=== PATIENT | male | born 1930 | race Caucasian/White ===

== ENCOUNTER 2016-09-21 00:10 | Inpatient (IN) | payer MEDICARE, BC ==
[2016-09-21] VITALS (33 sets, daily range): BP systolic 105–128; BP diastolic 48–83; PULSE 74–147; RESP 14–24; TEMP 97.7–98.8; O2SAT 85–99
--- NOTE | 2016-09-21 00:33 | PD ---
HPI Chief Complaint: Abnormal Results Time Seen by Provider: 00:18 Travel History International Travel<30 days: No Contact w/Intl Traveler<30days: No Traveled to known affect area: No History of Present Illness HPI 86yo M brought in by [facility] from [facility] for low hemoglobin of 6.5 today. Pt had routine blood work this afternoon and found to have low hemoglobin. Pt has history of osteomyelitis receiving antibiotics from left PICC line, HTN, afib on coumadin, and recent right hip replacement 6-7 weeks ago. 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 Denies any fever, chest pain, sob, n/v, abdominal pain, blood in stool, focal weakness or numbness. Denies any bleeding. PFSH Social History Tobacco Use: No Allergies-Medications (Allergen,Severity, Reaction): Coded Allergies: Heparin (Verified Allergy, Unknown, 09/21/16) Iodine (Verified Allergy, Unknown, 09/21/16) Reported Meds & Prescriptions Reported Meds & Active Scripts Active Reported Cefazolin/Dextrose 2 gm/100Ml (Cefazolin in D5w) 1 Inj Inj 2 Gm IV Q8HR Zinc Sulfate 220 Mg Cap 220 Mg PO DAILY Coumadin (Warfarin) 4 Mg Tab 4.5 Mg PO DAILY Lotrisone Topical (Betamethasone/Clotrimazole) 1-0.05% Cream 1 Applic TOPICAL BID Metoprolol Tartrate 50 Mg Tab 50 Mg PO DAILY Dulcolax Supp (Bisacodyl) 10 Mg Supp 10 Mg RECTAL DAILY PRN Milk of Magnesia Liq (Magnesium Hydroxide) 400 Mg/5 Ml Susp 30 Ml PO Q6H PRN Enema 7-19 gm/118Ml (Sodium Phosphates) 1 Martha Martha Valsartan 320 Mg Tab 320 Mg PO DAILY Citroma Liq (Magnesium Citrate) 300 Ml Liq 296 Ml PO DIRECTED PRN Vytorin (Ezetimibe-Simvastatin) 10-20 Mg Tab 1 Tab PO HS Review of Systems Except as stated in HPI: all other systems reviewed are Neg Physical Exam Narrative GEN: 86yo M not in distress. SKIN: Warm and dry. HEENT: Head: Normocephalic, atraumatic. ENT: Eyes: EOMI, PERRLA. CV: S1, S2. Lungs: CTA B/L, equal breath sounds. Abd: soft, NT/ND. BACK: No midline ttp. Ext: RLE: +Right proximal femur scar, clean, no erythema or discharge. NEURO: No focal neurologic deficits. Data Data Last Documented VS Vital Signs Date Time Temp Pulse Resp B/P Pulse Ox O2 Delivery O2 Flow Rate FiO2 09/21/16 02:00 77 18 105/64 96 Nasal Cannula 2 Orders Complete Blood Count With Diff (09/21/16 00:28) Basic Metabolic Panel (Bmp) (09/21/16 00:28) Prothrombin Time / Inr (Pt) (09/21/16 00:28) Act Partial Throm Time (Ptt) (09/21/16 00:28) Type And Screen (09/21/16 00:28) Electrocardiogram (09/21/16 ) Red Blood Cells (Rbc) (09/21/16 01:01) Blood Product Administration .UPON TRANSFUSION (09/21/16 01:01) Sodium Chlor 0.9% 250 Ml Inj (Ns 250 Ml (09/21/16 01:15) Ckmb (Isoenzyme) Profile (09/21/16 00:30) Troponin I (09/21/16 00:30) Admit Order (Ed Use Only) (09/21/16 01:59) Direct Jackson (09/21/16 00:30) Labs Laboratory Tests Test 09/21/16 09/21/16 00:30 01:01 White Blood Count 7.5 TH/MM3 Red Blood Count 2.10 MIL/MM3 Hemoglobin 6.3 GM/DL Hematocrit 19.1 % Mean Corpuscular Volume 90.8 FL Mean Corpuscular Hemoglobin 30.0 PG Mean Corpuscular Hemoglobin 33.0 % Concent Red Cell Distribution Width 17.9 % Platelet Count 176 TH/MM3 Mean Platelet Volume 6.9 FL Neutrophils (%) (Auto) 73.2 % Lymphocytes (%) (Auto) 16.4 % Monocytes (%) (Auto) 6.6 % Eosinophils (%) (Auto) 3.1 % Basophils (%) (Auto) 0.7 % Neutrophils # (Auto) 5.5 TH/MM3 Lymphocytes # (Auto) 1.2 TH/MM3 Monocytes # (Auto) 0.5 TH/MM3 Eosinophils # (Auto) 0.2 TH/MM3 Basophils # (Auto) 0.1 TH/MM3 CBC Comment DIFF FINAL Differential Comment Prothrombin Time 38.6 SEC Prothromb Time International 3.3 RATIO Ratio Activated Partial 43.9 SEC Thromboplast Time Sodium Level 139 MEQ/L Potassium Level 4.3 MEQ/L Chloride Level 103 MEQ/L Carbon Dioxide Level 29.6 MEQ/L Anion Gap 6 MEQ/L Blood Urea Nitrogen 31 MG/DL Creatinine 1.22 MG/DL Estimat Glomerular Filtration 56 ML/MIN Rate Random Glucose 113 MG/DL Calcium Level 8.1 MG/DL Total Creatine Kinase 34 U/L Troponin I 0.13 NG/ML Blood Type B NEGATIVE Antibody Screen POSITIVE Antibody Identification Non-Specific Agglutinin Direct Antiglobulin Test NEGATIVE (Jackson) Crossmatch Leukocyte-Reduced Red Blood Cells Blood Bank Comment MDM Medical Decision Making Medical Screen Exam Complete: Yes Emergency Medical Condition: Yes Interpretation(s) EKG: Afib 76bpm. TWI inversions in I, aVL, V4-V6. ST depression V5. Differential Diagnosis GI bleed vs. chronic anemia Narrative Course 86yo M sent here because of low hemoglobin of 6.5. Labs reviewed, no leukocytosis. H/H is low at 6.3/19.1, will transfuse 2 units of RBC. INR therapeutic at 3.3. Pt has no chest pain but EKG shows ischemic changes with ST depression and TWI inversion in lateral leads so troponin was ordered. Troponin is mildly elevated at 0.13, will trend. Discussed with Dr. Tim and accepted to her service. HemaPrompt Point of Care Internal Pos. & Neg. Controls: Passed Fecal Specimen Occult Blood: Negative Diagnosis Primary Impression: Anemia Qualified Code: D64.9 - Anemia, unspecified type Admitting Information Admitting Physician Requests: Admit Liz Florian DO Sep 21, 2016 00:33 Liz Florian DO Sep 21, 2016 00:33
[2016-09-21 00:53] LABS: AUTOMATED NEUTROPHIL # 5.5 TH/MM3 (1.8-7.7); BASOPHIL # 0.1 TH/MM3 (0-0.2); BASOPHIL % 0.7 % (0.0-2.0); EOSINOPHIL # 0.2 TH/MM3 (0-0.4); EOSINOPHIL % 3.1 % (0.0-4.0); LYMPH % 16.4 % (9.0-44.0); LYMPHOCYTE # 1.2 TH/MM3 (1.0-4.8); MEAN CELL VOLUME 90.8 FL (80.0-100.0); MONO % 6.6 % (0.0-8.0); NEUT % 73.2 % (16.0-70.0); PLATELET COUNT 176 TH/MM3 (150-450); RED CELL DISTRIBUTION WIDTH 17.9 % (11.6-17.2); WHITE BLOOD COUNT 7.5 TH/MM3 (4.0-11.0)
[2016-09-21 00:56] LABS: HEMATOCRIT 19.1 % (39.0-51.0); HEMO FLAGS DIFF FINAL
[2016-09-21 01:06] LABS: APTT (PATIENT) 43.9 SEC (24.3-30.1); INTERNATIONAL NORMALIZED RATIO 3.3 RATIO; PROTHROMBIN TIME - PATIENT 38.6 SEC (9.8-11.6)
[2016-09-21 01:12] LABS: BICARBONATE 29.6 MEQ/L (21.0-32.0); POTASSIUM 4.3 MEQ/L (3.5-5.1)
[2016-09-21] MEDS ORDERED: METO50TA PO (01:15)
[2016-09-21] MEDS ORDERED: DULC10SU3 RECTAL (01:15)
[2016-09-21] MEDS ORDERED: SODIUM CHLOR 0.9% 250 ML INJ 250 ML IV ONE (01:15)
[2016-09-21] MEDS ORDERED: ZINC220C3 PO (01:15)
[2016-09-21] MEDS ORDERED: LOTR15T TOPICAL (01:15)
[2016-09-21] MEDS ORDERED: CEFA1INJ IV (01:15)
[2016-09-21] MEDS ORDERED: CITRSOL4 PO (01:15)
[2016-09-21] MEDS ORDERED: VYTO10TA8 PO (01:15)
[2016-09-21] MEDS ORDERED: MILKSUS PO (01:15)
[2016-09-21] MEDS ORDERED: COUM4TAB PO (01:15)
[2016-09-21] MEDS ORDERED: ENEMENE3 (01:15)
[2016-09-21] MEDS ORDERED: VALS1TAB70 PO (01:15)
[2016-09-21] MEDS ORDERED: ACETAMINOPHEN 325 MG TAB PO PRN (02:15)
[2016-09-21] MEDS ORDERED: BISACODYL 10 MG SUPP RECTAL PRN (02:15)
[2016-09-21] MEDS ORDERED: SODIUM CHLORIDE 0.9% FLUSH 10 ML FLUSH IV FLUSH PRN (02:15)
[2016-09-21] MEDS ORDERED: ONDANSETRON HCL 4 MG/2 ML VIAL IVP PRN (02:15)
[2016-09-21] MEDS ORDERED: LACTULOSE SYRUP 20 GM/30 ML CUP PO PRN (02:15)
[2016-09-21] MEDS ORDERED: FUROSEMIDE 20 MG/2 ML VIAL IV PUSH ONE (02:15)
[2016-09-21] MEDS ORDERED: SENNOSIDES 8.6 MG TAB PO PRN (02:15)
[2016-09-21 04:24] LABS: BACTERIA, URINE RARE /hpf; BLOOD, URINE SMALL (NEG); COMMENT (UR) CULTURE INDICATED; CULTURE IF INDICATED CULTURE INDICATED; GLUCOSE,URINE NEG (NEG); HYALINE CAST, URINE 3 /lpf (RARE); KETONE, URINE TRACE mg/dL (NEG); MUCUS URINE FEW /lpf (OCC); NITRITE,URINE NEG (NEG); PH, URINE 5.5 (5.0-8.5); SQUAMOUS EPITHELIAL CELL URINE 2 /hpf (0-5); URINE COLOR YELLOW (YELLW/STRAW)
[2016-09-21] MEDS ORDERED: RESP: ALBUTEROL 2.5 MG/IPRATROPIUM 0.5 MG NEB (PRN) NEB (04:45)
[2016-09-21] MEDS ORDERED: RESP: IPRATROPIUM 0.5 MG/2.5 ML NEB NEB ONE (05:00)
--- NOTE | 2016-09-21 05:04 | HHI.HP ---
[facility] Primary [facility] Physician No Primary Care Physician Admission Diagnosis Symptomatic anemia Diagnoses: (1) Anemia Diagnosis: Principal (2) A-fib Diagnosis: Principal (3) Elevated troponin Diagnosis: Principal (4) Osteomyelitis Diagnosis: Principal (5) UTI (urinary tract infection) Diagnosis: Principal Travel History International Travel<30 Days: No Contact w/Intl Traveler <30 Da: No Traveled to Known Affected Are: No History of Present Illness This is an 86-year-old male with a PMH of HTN, Osteomyelitis on IV Abx and A- fib on Coumadin who was sent to the ER secondary to outpatient lab work showing Hgb 6.3. Currently Hgb 6.5. Pt denies active bleeding at this time. On arrival, BP 108/55, HR 76, O2 sat 93% on 2L NC, Afebrile. WBC normal. Hgb 6.3 , Hct 19.1, no previous labs for comparison. Chemistry unremarkable except for dehydration, BUN 31, GFR 56. Troponin 0.13. INR 3.3. UA positive for UTI. 2u pRBC ordered in ER for transfusion. Pt w/ no complaints of chest pain or SOB. Review of Systems Except as stated in HPI: all other systems reviewed are Neg ROS: 14 point review of systems otherwise negative. Past Family Social History Past Medical History PMH: HTN, Osteomyelitis on IV Abx and A-fib on Coumadin Past Surgical History PAST SURGICAL HISTORY: Right Hip Replacement Allergies: Coded Allergies: Heparin (Verified Allergy, Unknown, 09/21/16) Iodine (Verified Allergy, Unknown, 09/21/16) Family History PAST FAMILY HISTORY: Reviewed. No h/o DM or CAD Social History PAST SOCIAL HISTORY: Negative for alcohol, tobacco or drugs. Patient is resident at [facility] Physical Exam Vital Signs Vital Signs Date Time Temp Pulse Resp B/P Pulse Ox O2 Delivery O2 Flow Rate FiO2 09/21/16 03:00 93 18 127/69 97 Nasal Cannula 2 09/21/16 02:00 77 18 105/64 96 Nasal Cannula 2 09/21/16 01:00 76 18 108/55 93 Nasal Cannula 2 Physical Exam PE: GENERAL: Elderly white male in no acute distress. HEENT: PERRLA, EOMI. No scleral icterus or conjunctival pallor. No lid lag or facial droop. CARDIOVASCULAR: Irregularly irregular, in A. fib. No obvious murmurs to auscultation. No chest tenderness to palpation. RESPIRATORY: No obvious rhonchi or wheezing. Clear to auscultation. Breath sounds equal bilaterally. GASTROINTESTINAL: Abdomen soft, non-tender, nondistended. BS normal. MUSCULOSKELETAL: Extremities without clubbing, cyanosis, or edema. No obvious deformities. NEUROLOGICAL: Awake, alert and oriented x4. No focal neurologic deficits. Moving both upper and lower extremities spontaneously. Laboratory Laboratory Tests Test 09/21/16 09/21/16 09/21/16 09/21/16 00:30 01:01 02:07 03:50 White Blood Count 7.5 Red Blood Count 2.10 Hemoglobin 6.3 Hematocrit 19.1 Mean Corpuscular Volume 90.8 Mean Corpuscular Hemoglobin 30.0 Mean Corpuscular Hemoglobin 33.0 Concent Red Cell Distribution Width 17.9 Platelet Count 176 Mean Platelet Volume 6.9 Neutrophils (%) (Auto) 73.2 Lymphocytes (%) (Auto) 16.4 Monocytes (%) (Auto) 6.6 Eosinophils (%) (Auto) 3.1 Basophils (%) (Auto) 0.7 Neutrophils # (Auto) 5.5 Lymphocytes # (Auto) 1.2 Monocytes # (Auto) 0.5 Eosinophils # (Auto) 0.2 Basophils # (Auto) 0.1 CBC Comment DIFF FINAL Differential Comment Prothrombin Time 38.6 Prothromb Time International 3.3 Ratio Activated Partial 43.9 Thromboplast Time Sodium Level 139 Potassium Level 4.3 Chloride Level 103 Carbon Dioxide Level 29.6 Anion Gap 6 Blood Urea Nitrogen 31 Creatinine 1.22 Estimat Glomerular Filtration 56 Rate Random Glucose 113 Calcium Level 8.1 Total Creatine Kinase 34 Troponin I 0.13 Blood Type B NEGATIVE B NEGATIVE Antibody Screen POSITIVE Antibody Identification Non-Specific Agglutinin Direct Antiglobulin Test NEGATIVE (Jackson) Crossmatch Leukocyte-Reduced Red Blood Cells Blood Bank Comment Urine Color YELLOW Urine Turbidity HAZY Urine pH 5.5 Urine Specific [place] 1.022 Urine Protein 30 Urine Glucose (UA) NEG Urine Ketones TRACE Urine Occult Blood SMALL Urine Nitrite NEG Urine Bilirubin NEG Urine Urobilinogen LESS THAN 2.0 Urine Leukocyte Esterase LARGE Urine RBC 6 Urine WBC 52 Urine Squamous Epithelial 2 Cells Urine Bacteria RARE Urine Hyaline Casts 3 Urine Mucus FEW Urine Yeast with Hyphae OCC Microscopic Urinalysis Comment CULTURE INDICATED Date/Time Procedure Status Source Growth 09/21/16 03:50 Urine Culture Received Urine Clean Catch Pending Result Diagram: 09/21/162909/21/1629 Assessment and Plan Problem List: (1) Anemia ICD Code: D64.9 Status: Acute (2) Elevated troponin ICD Code: R74.8 Status: Acute (3) A-fib ICD Code: I48.91 Status: Acute (4) UTI (urinary tract infection) ICD Code: N39.0 Status: Acute (5) Osteomyelitis ICD Code: M86.9 Status: Acute Assessment and Plan A/P: 1. Anemia: Critical Anemia, Hgb 6.5, Hct 19.1, no previous labs for comparison. No signs of bleeding. 2u pRBC ordered in ER, pending transfusion, repeat Hgb/Hct. 2. Elevated Trop: Trop 0.13, EKG w/ mild ST depressions and T-wave inversions , no previous EKG for comparison. No c/o chest pain. Likely secondary to cardiac strain from significant anemia. Admit to [facility], trend cardiac enzymes. Hold anticoagulation in light of critical anemia. 3. UTI: U/a w/ UTI, IV Abx, IVF for hydration. 4. Osteomyelitis: currently receiving IV Cefazolin 2gm IV q8h via Left PICC- present at time of admission. 5. A-fib: Chronic. On Coumadin, will hold in light of anemia, INR 3.3. Repeat INR in am. 6. DVT Prophylaxis: Pharmacologic contraindication in light of above. 7. Social work for d/c planning as needed. 8. Case discussed w/ ER physician at length Physician Certification 2 Midnight Certification Type: Admission for Inpatient Services Order for Inpatient Services The services are ordered in accordance with Medicare regulations or non- Medicare payer requirements, as applicable. In the case of services not specified as inpatient-only, they are appropriately provided as inpatient services in accordance with the 2-midnight benchmark. Estimated LOS (days): 2 days is the estimated time the patient will need to remain in the hospital, assuming treatment plan goals are met and no additional complications. Post-Hospital Plan: Not yet determined Michelle Tim MD Sep 21, 2016 05:04
[2016-09-21] MEDS ORDERED: DILTIAZEM INJ 125 MG in SODIUM CHLORIDE 0.9% INJ 100 ML IV SCH (05:15)
--- NOTE | 2016-09-21 05:56 | RADRPT ---
EXAM DATE/TIME: 09/21/2016 05:06 [place] COMPARISON: No previous studies available for comparison. INDICATIONS : Shortness of breath. MEDICAL HISTORY : None. SURGICAL HISTORY : None. ENCOUNTER: Initial ACUITY: 1 day PAIN SCORE: 0/10 LOCATION: chest FINDINGS: Patchy air space opacities are seen of both lungs. No large effusion seen. No pneumothorax. There is a left arm PICC with tip at the atrial caval junction. Patient has had previous median sternotomy and valve replacement. CONCLUSION: Patchy bilateral pulmonary consolidation. Senthil Nava MD on September 21, 2016 at 5:53 Board Certified Radiologist. This report was verified electronically.
[2016-09-21] MEDS: ACETAMINOPHEN/HYDROcodone 325 MG/10 MG TAB PO PRN ×3 (06:01→18:39)
[2016-09-21] MEDS: ZINC SULFATE 220 MG CAP PO SCH (09:00)
[2016-09-21] MEDS: ceFAZolin 2 GM PREMIX 50 ML IV SCH ×3 (10:15→21:18)
[2016-09-21] MEDS: METOPROLOL TARTRATE 50 MG TAB PO SCH (10:16)
[2016-09-21] MEDS: VALSARTAN 160 MG TAB PO SCH (10:16)
[2016-09-21] MEDS: SODIUM CHLORIDE 0.9% FLUSH 10 ML FLUSH IV FLUSH SCH ×2 (10:16→21:07)
[2016-09-21] MEDS: DOCUSATE SODIUM 50 MG/SENNA 8.6 MG TAB PO SCH ×2 (10:17→21:07)
[2016-09-21] MEDS: BETAMETHASONE/CLOTRIMAZOLE CREAM 15 GM TOPICAL SCH ×2 (10:17→21:17)
--- NOTE | 2016-09-21 17:26 | EKG ---
Date Performed: 09/21/2016 Time Performed: 04:56:16 PTAGE: 86 years EKG: Atrial fibrillation with rapid ventricular response with PVC(s) or aberrant ventricular con duction Left bundle branch block Abnormal ECG PREVIOUS TRACING : 09/21/2016 00.56 Compared to the previous tracing a fib w RVR present DOCTOR: Izabela Foss Interpretating Date/Time 09/21/2016 17:25:51
--- NOTE | 2016-09-21 17:32 | EKG ---
Date Performed: 09/21/2016 Time Performed: 00:56:26 PTAGE: 86 years EKG: Sinus rhythm MODERATE INTRAVENTRICULAR CONDUCTION DELAY ST DEVIATION AND MODERATE T-WAVE ABNORMALITY ABNORMAL ECG NO PREVIOUS TRACING DOCTOR: Izabela Foss Interpretating Date/Time 09/21/2016 17:32:19
[2016-09-21 17:56] LABS: FERRITIN 268 NG/ML (26-388); TRANSFERRIN IRON PROFILE 174 MG/DL (200-360)
[2016-09-21] MEDS ORDERED: NON-FORMULARY DRUG (Ezetimibe-Simvastatin (Vytorin) 1 TAB) PO SCH (21:00)
[2016-09-21] MEDS: EZETIMIBE 10 MG TAB PO SCH (21:07)
[2016-09-21] MEDS: PRAVASTATIN SOD 40 MG TAB PO SCH (21:07)
[2016-09-21] MEDS: ACETAMINOPHEN/HYDROcodone 325 MG/5 MG TAB PO PRN (22:28)
[2016-09-21 23:39] LABS: HEMATOCRIT 24.5 % (39.0-51.0)
[2016-09-22] VITALS (28 sets, daily range): BP systolic 112–124; BP diastolic 67–79; PULSE 72–108; RESP 16–18; TEMP 98–98.6; O2SAT 91–95
[2016-09-22] MEDS: ACETAMINOPHEN/HYDROcodone 325 MG/10 MG TAB PO PRN (02:26)
[2016-09-22] MEDS: ceFAZolin 2 GM PREMIX 50 ML IV SCH ×3 (05:42→21:12)
[2016-09-22 06:48] LABS: AUTOMATED NEUTROPHIL # 5.7 TH/MM3 (1.8-7.7); BASOPHIL % 0.3 % (0.0-2.0); EOSINOPHIL # 0.2 TH/MM3 (0-0.4); EOSINOPHIL % 2.8 % (0.0-4.0); HEMATOCRIT 23.9 % (39.0-51.0); MEAN CELL VOLUME 90.8 FL (80.0-100.0); MEAN CORPUSCULAR HEMOGLOBIN 30.7 PG (27.0-34.0); MEAN CORPUSCULAR HGB CONC 33.8 % (32.0-36.0); MONO % 7.7 % (0.0-8.0); NEUT % 76.2 % (16.0-70.0); PLATELET COUNT 178 TH/MM3 (150-450); RED BLOOD COUNT 2.64 MIL/MM3 (4.50-5.90); RED CELL DISTRIBUTION WIDTH 16.9 % (11.6-17.2); WHITE BLOOD COUNT 7.5 TH/MM3 (4.0-11.0)
[2016-09-22 07:00] LABS: ALT (GPT) 8 U/L (12-78); ANION GAP 5 MEQ/L (5-15); AST (GOT) 36 U/L (15-37); BICARBONATE 32.6 MEQ/L (21.0-32.0); BLOOD UREA NITROGEN 28 MG/DL (7-18); CHLORIDE 102 MEQ/L (98-107); GLOMERULAR FILTRATION RATE 72 ML/MIN (>89); POTASSIUM 4.3 MEQ/L (3.5-5.1); SODIUM (NA) 140 MEQ/L (136-145)
[2016-09-22 07:02] LABS: ALKALINE PHOSPHATASE 180 U/L (45-117); TOTAL BILIRUBIN ADULT 1.2 MG/DL (0.2-1.0)
[2016-09-22 07:16] LABS: INTERNATIONAL NORMALIZED RATIO 2.5 RATIO; PROTHROMBIN TIME - PATIENT 28.8 SEC (9.8-11.6)
[2016-09-22 07:17] LABS: HEMO FLAGS AUTO DIFF
[2016-09-22] MEDS: VALSARTAN 160 MG TAB PO SCH (09:16)
[2016-09-22] MEDS: ZINC SULFATE 220 MG CAP PO SCH (09:16)
[2016-09-22] MEDS: SODIUM CHLORIDE 0.9% FLUSH 10 ML FLUSH IV FLUSH SCH ×2 (09:16→21:12)
[2016-09-22] MEDS: DOCUSATE SODIUM 50 MG/SENNA 8.6 MG TAB PO SCH ×2 (09:16→21:11)
[2016-09-22] MEDS: METOPROLOL TARTRATE 50 MG TAB PO SCH (09:17)
[2016-09-22] MEDS: BETAMETHASONE/CLOTRIMAZOLE CREAM 15 GM TOPICAL SCH ×2 (09:17→21:12)
--- NOTE | 2016-09-22 10:46 | HHI.PR ---
Subjective Remarks Patient reports is feeling better today. Shortness of breath has improved. No chest pain. He is tolerating his diet. Objective Vitals Vital Signs Date Time Temp Pulse Resp B/P Pulse Ox O2 Delivery O2 Flow Rate FiO2 09/22/16 09:26 91 Nasal Cannula 3.00 09/22/16 09:00 88 09/22/16 09:00 94 Nasal Cannula 4.00 09/22/16 08:00 89 09/22/16 08:00 91 Nasal Cannula 3.00 09/22/16 08:00 98.2 91 18 124/79 92 09/22/16 07:47 94 Nasal Cannula 3.00 09/22/16 07:00 74 09/22/16 06:33 79 09/22/16 05:21 88 09/22/16 04:04 83 09/22/16 03:07 98.5 100 18 114/67 92 09/22/16 03:07 92 Nasal Cannula 3.50 09/22/16 03:07 100 09/22/16 02:15 92 09/22/16 01:35 92 09/22/16 00:15 93 09/21/16 23:15 98.7 94 16 109/78 96 09/21/16 23:15 99 09/21/16 23:15 94 Nasal Cannula 3.50 09/21/16 22:22 93 09/21/16 21:00 101 09/21/16 20:18 113 09/21/16 20:18 98.7 81 18 125/81 98 09/21/16 20:15 98 Nasal Cannula 4.00 09/21/16 19:45 94 Nasal Cannula 4.00 09/21/16 17:00 76 09/21/16 16:30 90 Nasal Cannula 3.00 09/21/16 16:07 97.8 104 16 118/83 92 09/21/16 16:00 98 09/21/16 15:35 89 09/21/16 15:25 97.8 104 16 118/83 92 09/21/16 15:00 78 09/21/16 14:00 74 09/21/16 13:00 74 09/21/16 12:05 83 09/21/16 12:00 74 09/21/16 12:00 98.0 75 16 117/75 96 09/21/16 12:00 94 Nasal Cannula 3.00 09/21/16 11:54 98.0 75 16 116/66 96 09/21/16 11:50 98.0 75 16 117/75 96 09/21/16 11:32 16 09/21/16 11:00 76 I/O 09/21/16 09/21/16 09/21/16 09/22/16 09/22/16 09/22/16 07:00 15:00 23:00 07:00 15:00 23:00 Intake Total 50 ml 1230 ml 340 ml Output Total 100 ml Balance -50 ml 1230 ml 340 ml Intake Oral 50 ml 520 ml 240 ml IV Total 200 ml 100 ml Packed Cells 510 ml Output Urine Total 100 ml # Voids 5 2 # Bowel Movements 0 0 0 Result Diagram: 09/22/16 0500 09/22/16 0500 Imaging Last Impressions Chest X-Ray 09/21/16 0000 Signed Impressions: Service Date/Time: Wednesday, September 21, 2016 05:06 - CONCLUSION: Patchy bilateral pulmonary consolidation. Senthil Nava MD Objective Remarks GENERAL: Elderly and frail male in no apparent distress. CARDIOVASCULAR: Normal rate and regular rhythm without murmurs, gallops, or rubs. RESPIRATORY: Good respiratory efforts. Diminished breath sounds at the bases otherwise clear to auscultation. GASTROINTESTINAL: Abdomen soft, non-tender, non-distended. Normal active bowel sounds MUSCULOSKELETAL: Extremities without cyanosis, or edema. NEURO: Alert & Oriented x4 to person, place, time, situation. Moves all ext x4 PSYCH: Appropriate mood and affect. A/P Problem List: (1) Anemia ICD Code: D64.9 Status: Acute (2) Elevated troponin ICD Code: R74.8 Status: Acute (3) A-fib ICD Code: I48.91 Status: Acute (4) UTI (urinary tract infection) ICD Code: N39.0 Status: Acute (5) Osteomyelitis ICD Code: M86.9 Status: Acute Assessment and Plan 86-year-old male with 1. Anemia: Critical Anemia on admission, Hgb 6.5, Hct 19.1. Per the patient' s family, he has had multiple surgeries in the past few months related to osteomyelitis of his hip. Has had some issues with anemia. Patient is status post PRBC transfusion. H&H stable. Continue to monitor. No signs of active bleeding. 2. Elevated Trop: Remain flat, EKG w/ mild ST depressions and T-wave inversions , no previous EKG for comparison. No c/o chest pain. Likely secondary to cardiac strain from significant anemia. 3. UTI: U/a w/ UTI, IV Abx, IVF for hydration. 4. Osteomyelitis: currently receiving IV Cefazolin 2gm IV q8h via Left PICC- present at time of admission. 5. A-fib: Chronic. On Coumadin, will hold in light of anemia, follow INR in am. 6. DVT Prophylaxis: Pharmacologic contraindication in light of above. Diamante Pang MD Sep 22, 2016 10:46
[2016-09-22 10:54] LABS: SCAN/DIFF AUTO DIFF CONFIRMED
[2016-09-22] MEDS: PRAVASTATIN SOD 40 MG TAB PO SCH (21:00)
[2016-09-22] MEDS: EZETIMIBE 10 MG TAB PO SCH (21:12)
[2016-09-22] MEDS: ACETAMINOPHEN/HYDROcodone 325 MG/5 MG TAB PO PRN (21:18)
[2016-09-23] VITALS (32 sets, daily range): BP systolic 87–117; BP diastolic 49–79; PULSE 74–124; RESP 15–20; TEMP 98–98.6; O2SAT 95–99
[2016-09-23] MEDS: ceFAZolin 2 GM PREMIX 50 ML IV SCH ×3 (05:30→21:16)
[2016-09-23 05:54] LABS: HEMATOCRIT 23.8 % (39.0-51.0); MEAN CELL VOLUME 90.7 FL (80.0-100.0); MEAN CORPUSCULAR HEMOGLOBIN 30.6 PG (27.0-34.0); MEAN CORPUSCULAR HGB CONC 33.8 % (32.0-36.0); PLATELET COUNT 170 TH/MM3 (150-450); RED BLOOD COUNT 2.63 MIL/MM3 (4.50-5.90); RED CELL DISTRIBUTION WIDTH 17.6 % (11.6-17.2); REVIEW FLAG FINAL; WHITE BLOOD COUNT 7.9 TH/MM3 (4.0-11.0)
[2016-09-23] MEDS: ACETAMINOPHEN/HYDROcodone 325 MG/10 MG TAB PO PRN (06:12)
[2016-09-23 06:17] LABS: BICARBONATE 30.3 MEQ/L (21.0-32.0)
[2016-09-23] MEDS: VALSARTAN 160 MG TAB PO SCH ×2 (08:26→09:00)
[2016-09-23] MEDS: ZINC SULFATE 220 MG CAP PO SCH (08:26)
[2016-09-23] MEDS: DOCUSATE SODIUM 50 MG/SENNA 8.6 MG TAB PO SCH ×2 (08:26→21:16)
[2016-09-23] MEDS: SODIUM CHLORIDE 0.9% FLUSH 10 ML FLUSH IV FLUSH SCH ×2 (08:26→21:16)
[2016-09-23] MEDS: METOPROLOL TARTRATE 50 MG TAB PO SCH ×2 (08:26→14:44)
[2016-09-23] MEDS: BETAMETHASONE/CLOTRIMAZOLE CREAM 15 GM TOPICAL SCH ×2 (08:27→21:17)
--- NOTE | 2016-09-23 11:06 | HHI.PR ---
Subjective Remarks BP on the lower side this morning. He denies lightheadedness or shortness of breath. H&H remained stable. Objective Vitals Vital Signs Date Time Temp Pulse Resp B/P Pulse Ox O2 Delivery O2 Flow Rate FiO2 09/23/16 10:00 90 09/23/16 09:27 100/58 09/23/16 09:25 87/49 09/23/16 09:00 87 09/23/16 08:34 96 Nasal Cannula 3.00 09/23/16 08:00 98 09/23/16 08:00 98.0 98 18 99/57 96 09/23/16 07:23 94 Nasal Cannula 3.00 09/23/16 07:15 20 09/23/16 07:00 97 09/23/16 06:02 103 09/23/16 05:57 102 09/23/16 04:12 90 09/23/16 03:31 98.1 76 15 115/79 96 09/23/16 03:31 96 Nasal Cannula 3.00 09/23/16 03:00 81 09/23/16 02:00 74 09/23/16 01:00 76 09/23/16 00:00 89 09/22/16 23:07 94 Nasal Cannula 3.00 09/22/16 23:07 98.4 91 16 114/73 94 09/22/16 23:00 76 09/22/16 22:00 108 09/22/16 21:00 76 09/22/16 20:00 96 09/22/16 19:07 95 Nasal Cannula 3.00 09/22/16 19:07 98.6 75 16 112/73 95 09/22/16 19:00 81 09/22/16 18:00 81 09/22/16 17:00 78 09/22/16 16:00 79 09/22/16 15:47 98.0 81 18 112/76 94 09/22/16 15:47 94 Nasal Cannula 3.00 09/22/16 15:00 76 09/22/16 14:00 78 09/22/16 13:00 82 09/22/16 12:00 84 09/22/16 12:00 98.0 81 18 118/78 94 09/22/16 12:00 94 Nasal Cannula 4.00 I/O 6/10/17 6/01/2909/22/16 09/23/16 09/23/16 09/23/16 07:00 15:00 23:00 07:00 15:00 23:00 Intake Total 340 ml 575 ml 530 ml Output Total 2 ml Balance 340 ml 575 ml 528 ml Intake Oral 240 ml 525 ml 480 ml IV Total 100 ml 50 ml 50 ml Output Urine Total 2 ml # Voids 2 4 # Bowel Movements 0 0 0 Result Diagram: 09/23/16 0532 09/23/16531 Objective Remarks GENERAL: Elderly and frail male in no apparent distress. CARDIOVASCULAR: Normal rate and regular rhythm without murmurs, gallops, or rubs. RESPIRATORY: Good respiratory efforts. Diminished breath sounds at the bases otherwise clear to auscultation. GASTROINTESTINAL: Abdomen soft, non-tender, non-distended. Normal active bowel sounds MUSCULOSKELETAL: Extremities without cyanosis, or edema. NEURO: Alert & Oriented x4 to person, place, time, situation. Moves all ext x4 PSYCH: Appropriate mood and affect. A/P Problem List: (1) Anemia ICD Code: D64.9 Status: Acute (2) Elevated troponin ICD Code: R74.8 Status: Acute (3) A-fib ICD Code: I48.91 Status: Acute (4) UTI (urinary tract infection) ICD Code: N39.0 Status: Acute (5) Osteomyelitis ICD Code: M86.9 Status: Acute Assessment and Plan 86-year-old male with Anemia: Critical Anemia on admission, Hgb 6.5, Hct 19.1. Per the patient's family, he has had multiple surgeries in the past few months related to osteomyelitis of his hip. Has had some issues with anemia. Patient is status post PRBC transfusion. H&H stable. Continue to monitor. No signs of active bleeding. Rectal exam neg in the ed. No BM yet. - Consult hematology for recommendations. His Coumadin has been on hold. He has a fib. Atrial fibrillation: chronic. Rate controlled on Metoprolol. Patient had one episode of borderline low blood pressure this morning. Asymptomatic. Continue to monitor closely. May need to decrease metoprolol dose. Elevated Trop: Remain flat, EKG w/ mild ST depressions and T-wave inversions, no previous EKG for comparison. No c/o chest pain. Likely secondary to cardiac strain from significant anemia. UTI: U/a w/ UTI, on IV Abx. Follow cultures Osteomyelitis: currently receiving IV Cefazolin 2gm IV q8h via Left PICC- present at time of admission. DVT Prophylaxis: Pharmacologic contraindication in light of above. Problem Qualifiers (1) Anemia: Qualified Code: D64.9 - Anemia, unspecified type Diamante Pang MD Sep 23, 2016 11:06
[2016-09-23 13:08] LABS: INTERNATIONAL NORMALIZED RATIO 1.8 RATIO; PROTHROMBIN TIME - PATIENT 20.2 SEC (9.8-11.6)
[2016-09-23] MEDS: PRAVASTATIN SOD 40 MG TAB PO SCH (21:16)
[2016-09-23] MEDS: EZETIMIBE 10 MG TAB PO SCH (21:16)
[2016-09-24] VITALS (33 sets, daily range): BP systolic 104–133; BP diastolic 51–84; PULSE 73–102; RESP 16–18; TEMP 97.9–99.9; O2SAT 94–99
[2016-09-24] MEDS: ACETAMINOPHEN/HYDROcodone 325 MG/5 MG TAB PO PRN (00:57)
[2016-09-24 05:46] LABS: HEMATOCRIT 23.6 % (39.0-51.0); MEAN CELL VOLUME 92.7 FL (80.0-100.0); MEAN CORPUSCULAR HEMOGLOBIN 30.4 PG (27.0-34.0); MEAN CORPUSCULAR HGB CONC 32.8 % (32.0-36.0); PLATELET COUNT 149 TH/MM3 (150-450); RED BLOOD COUNT 2.55 MIL/MM3 (4.50-5.90); RED CELL DISTRIBUTION WIDTH 18.1 % (11.6-17.2); REVIEW FLAG FINAL; WHITE BLOOD COUNT 7.7 TH/MM3 (4.0-11.0)
[2016-09-24] MEDS: ceFAZolin 2 GM PREMIX 50 ML IV SCH ×3 (05:48→22:12)
[2016-09-24 05:51] LABS: INTERNATIONAL NORMALIZED RATIO 1.7 RATIO; PROTHROMBIN TIME - PATIENT 19.2 SEC (9.8-11.6)
[2016-09-24 06:15] LABS: BICARBONATE 30.9 MEQ/L (21.0-32.0); POTASSIUM 3.9 MEQ/L (3.5-5.1)
--- NOTE | 2016-09-24 06:16 | MB ---
cc: PAO LEE M.D. DATE OF CONSULTATION 09/23/2016 REASON FOR CONSULTATION Consult requested by Dr. Pang for evaluation of persistent anemia. HISTORY OF PRESENT ILLNESS Saul is a pleasant 86-year-old male. He has a history of osteomyelitis and he was treated with Rocephin for six weeks. After the Rocephin was stopped, the patient developed fever again and he was found to have recurrent osteomyelitis. He is now back on the antibiotics. He had a blood test at that the [facility] where the hemoglobin was found to be 6.5. The patient was sent to the emergency room. The patient is admitted to the hospital. He had received blood transfusion. His hemoglobin has improved. I have been asked to see the patient for further evaluation. REVIEW OF SYSTEMS The patient is feeling better after the blood transfusion. He denies any nausea or vomiting, diarrhea or constipation. He is complaining of weakness, tiredness and fatigue. He recently had a right hip replacement seven to eight weeks ago. The rest of the review of systems is negative. PAST MEDICAL HISTORY 1. Heart valve disease. 2. Arthritis. 3. Hypercholesterolemia. 4. Hypertension. 5. Atrial fibrillation. PAST SURGICAL HISTORY 1. Bovine heart valve replacement. 2. Right hip surgery. ALLERGIES HEPARIN. IODINE. MEDICATIONS Prior to his coming into the hospital - 1. Cephazolin. 2. Zinc. 3. Coumadin. 4. Lotrisone. 5. Metoprolol. 6. Dulcolax. 7. Milk of magnesia. 8. Enema. 9. Valsartan. 10. Citroma. 11. Vytorin. FAMILY HISTORY Noncontributory. SOCIAL HISTORY The patient does not smoke cigarettes, does not drink alcohol. PHYSICAL EXAMINATION GENERAL: This is a well-developed, well-nourished elderly white male in no apparent distress. VITAL SIGNS: Temperature 98.5, heart rate 77, blood pressure 117/73, O2 saturation 99% on 3 liters nasal cannula. HEENT: PERRLA, EOMI, anicteric. No oral lesions noted. NECK: Supple. There is no cervical, supraclavicular or axillary lymphadenopathy noted. LUNGS: Clear. No wheezing, rhonchi or rales. HEART: Irregularly irregular. ABDOMEN: Soft, nontender. No hepatosplenomegaly. EXTREMITIES: No pedal edema. NEUROLOGY: Awake, alert, oriented x 3. SKIN: No significant lesions noted. ASSESSMENT 1. Normocytic normochromic anemia. This is anemia of chronic inflammation such as osteomyelitis. 2. Osteomyelitis, status post 6 weeks of Rocephin therapy and then had recurrence and now is back on IV antibiotic with cefazolin. PLAN I have reviewed his records and I have discussed with the patient's son who is in the health care field and the daughter who is a nurse. We discussed that he has normocytic normochromic anemia. The B12, folate and iron studies do not show any deficiency. His stools were heme-negative on admission. He does not have any GI bleeding. We discussed that he is not losing blood but he is not making blood due to the chronic inflammation from osteomyelitis. We discussed that the chronic inflammation releases the cytokine such as TNF which has inhibitory effect on the bone marrow. His bone marrow is not making enough blood. My recommendation is to continue to provide blood transfusion support if his hemoglobin drops below 8. The blood transfusions certainly can be done either at the infusion center or in our clinic. Both the son and daughter like the idea of having blood transfusion at the infusion center rather than sending the patient to the emergency room and being admitted to the hospital. They will discuss with the admitting physician of [facility]. His hemoglobin has been stable for the last three days. In my opinion the patient could be safely discharged back to rehab and then continue to have outpatient transfusion if his hemoglobin drops below 8. The patient can be referred to our clinic for further followup if needed. Thank you for asking my opinion. MD ELIAN Garsia/RAJAT /1:19 AM /6:02 AM
[2016-09-24] MEDS: ZINC SULFATE 220 MG CAP PO SCH (09:36)
[2016-09-24] MEDS: DOCUSATE SODIUM 50 MG/SENNA 8.6 MG TAB PO SCH ×2 (09:36→22:12)
[2016-09-24] MEDS: ACETAMINOPHEN/HYDROcodone 325 MG/10 MG TAB PO PRN ×2 (09:36→22:13)
[2016-09-24] MEDS: METOPROLOL TARTRATE 50 MG TAB PO SCH (09:36)
[2016-09-24] MEDS: SODIUM CHLORIDE 0.9% FLUSH 10 ML FLUSH IV FLUSH SCH ×2 (09:37→22:13)
[2016-09-24] MEDS: BETAMETHASONE/CLOTRIMAZOLE CREAM 15 GM TOPICAL SCH ×2 (09:38→22:13)
--- NOTE | 2016-09-24 10:00 | PD.ONC.PN ---
Subjective Subjective Remarks Afebrile overnight. Resting comfortably in room. No complaints. Objective Data Date Time Temp Pulse Resp B/P Pulse Ox O2 Delivery O2 Flow Rate FiO2 09/24/16 07:45 75 09/24/16 07:45 97.9 75 18 118/73 98 09/24/16 07:45 95 Nasal Cannula 2.00 09/24/16 06:00 80 09/24/16 05:00 75 09/24/16 04:00 80 09/24/16 03:30 99 Nasal Cannula 3.00 09/24/16 03:30 98.4 73 16 116/69 99 09/24/16 03:00 75 09/24/16 02:00 84 09/24/16 01:00 95 09/24/16 00:00 76 09/23/16 23:40 Nasal Cannula 4.00 09/23/16 23:30 98.5 77 16 117/73 99 09/23/16 23:30 99 Nasal Cannula 3.00 09/23/16 23:00 76 09/23/16 22:00 76 09/23/16 21:00 76 09/23/16 20:00 97 Nasal Cannula 3.00 09/23/16 20:00 76 09/23/16 19:30 98.6 77 16 114/68 97 09/23/16 19:00 94 09/23/16 18:00 124 09/23/16 17:00 82 09/23/16 16:00 88 09/23/16 15:52 95 Nasal Cannula 3.00 09/23/16 15:51 98.0 79 20 112/62 95 09/23/16 15:00 77 09/23/16 14:00 91 09/23/16 13:00 99 09/23/16 12:00 94 09/23/16 11:19 98.5 98 18 101/60 96 09/23/16 11:18 94 Nasal Cannula 3.00 09/23/16 11:00 76 09/23/16 10:00 90 09/24/16 09/24/16 09/24/16 07:00 15:00 23:00 Intake Total 340 ml Output Total 150 ml Balance 190 ml Result Diagram: 09/24/1620 09/24/16 0520 Laboratory Results Laboratory Tests Test 09/23/16 09/24/16 12:30 05:20 Prothrombin Time 20.2 SEC 19.2 SEC Prothromb Time International 1.8 RATIO 1.7 RATIO Ratio White Blood Count 7.7 TH/MM3 Red Blood Count 2.55 MIL/MM3 Hemoglobin 7.7 GM/DL Hematocrit 23.6 % Mean Corpuscular Volume 92.7 FL Mean Corpuscular Hemoglobin 30.4 PG Mean Corpuscular Hemoglobin 32.8 % Concent Red Cell Distribution Width 18.1 % Platelet Count 149 TH/MM3 Mean Platelet Volume 7.0 FL Erythrocyte Sedimentation Rate 50 mm/hr Haptoglobin 47 MG/DL Sodium Level 136 MEQ/L Potassium Level 3.9 MEQ/L Chloride Level 99 MEQ/L Carbon Dioxide Level 30.9 MEQ/L Anion Gap 6 MEQ/L Blood Urea Nitrogen 21 MG/DL Creatinine 0.85 MG/DL Estimat Glomerular Filtration 85 ML/MIN Rate Random Glucose 137 MG/DL Calcium Level 8.2 MG/DL Phosphorus Level 2.8 MG/DL C-Reactive Protein 5.70 MG/DL Administered Medications Medications (Trade) Dose Ordered Sig/Markell Route PRN Reason Start Time Stop Time Status Last Admin Dose Admin Sodium Chloride (NS Flush) 2 ml BID IV FLUSH 09/21/16 09:00 09/24/16 09:37 Ondansetron HCl (Zofran Inj) 4 mg Q6H PRN IVP NAUSEA OR VOMITING 09/21/16 02:15 09/21/16 17:15 Acetaminophen/ Hydrocodone Bitart (Fentress 5-325 Mg) 1 tab Q4H PRN PO PAIN SCALE 3 TO 5 09/21/16 02:15 09/24/16 00:57 Acetaminophen/ Hydrocodone Bitart (Fentress 10-325 Mg) 1 tab Q4H PRN PO PAIN SCALE 6 TO 10 09/21/16 02:15 09/24/16 09:36 Senna/Docusate Sodium (Radha-Colace) 1 tab BID PO 09/21/16 09:00 09/24/16 09:36 Betamethasone/ Clotrimazole (Lotrisone Cream) 1 applic BID TOPICAL 09/21/16 09:00 09/24/16 09:38 Metoprolol Tartrate (Lopressor) 50 mg DAILY PO 09/21/16 09:00 09/24/16 09:36 Valsartan (Diovan) 320 mg DAILY PO 09/21/16 09:00 09/23/16 09:00 Zinc Sulfate (Zinc Sulfate) 220 mg DAILY PO 09/21/16 09:00 09/24/16 09:36 EZETIMIBE (Zetia) 10 mg HS PO 09/21/16 21:00 09/23/16 21:16 Pravastatin Sodium 40 mg 40 mg HS PO 09/21/16 21:00 09/23/16 21:16 Cefazolin Sodium/ Dextrose (Ancef 2 Gm Premix) 50 ml @ 100 mls/hr Q8H IV 09/21/16 06:00 09/24/16 05:48 Objective Remarks GENERAL: Elderly male, sitting up in NAD. SKIN: Warm and dry. HEAD: Normocephalic. EYES: no injection or drainage. NECK: Supple, trachea midline. CARDIOVASCULAR: +S1/S2 RESPIRATORY: diminished at bases, anterior smith with occasional rhonchi. on 4L O2 via [place] GASTROINTESTINAL: Abdomen soft, non-tender, nondistended. EXTREMITIES: No cyanosis. NEUROLOGICAL: awake and alert, normal speech. moving all extremities. Assessment/Plan Problem List: (1) Normocytic normochromic anemia Status: Acute Plan: 09/24: give 1 unit pRBC for hgb<8. fs faxed to [facility]. 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 --B12, folate and iron studies do not show any deficiency. --heme-negative stools --transfuse blood for hgb<8 --fs faxed to new patient referrals for follow up (2) Osteomyelitis Status: Acute Plan: --s/p 6 weeks of Rocephin therapy and then had recurrence-->now is back on IV antibiotic with cefazolin. Assessment 86y/o male with persistent anemia. history of osteomyelitis h/o Heart valve disease. Arthritis. Atrial fibrillation. Bovine heart valve replacement. Right hip surgery. Attending Statement Patient is Out of Bed Denies any new complaints Okay to restart Coumadin. No evidence of bleeding noted Monitor CBC The exam, history, and the medical decision-making described in the above note were completed with the assistance of the mid-level provider. I reviewed and agree with the findings presented. I attest that I had a [id number] encounter with the patient on the same day, and personally performed and documented my assessment and findings in the medical record. Samaria Bey Sep 24, 2016 10:00 Shaneka Epstein MD Sep 24, 2016 23:49
[2016-09-24] MEDS ORDERED: SODIUM CHLOR 0.9% 250 ML INJ 250 ML IV ONE (11:30)
[2016-09-24] MEDS ORDERED: ACETAMINOPHEN 325 MG TAB PO PRN (11:30)
[2016-09-24] MEDS ORDERED: diphenhydrAMINE HCL 25 MG CAP PO PRN (11:30)
[2016-09-24] MEDS: VALSARTAN 160 MG TAB PO SCH (12:49)
--- NOTE | 2016-09-24 13:23 | HHI.PR ---
Subjective Remarks no complains of chest pains or shortness of breath no reported melena or hematochezia- - guiac negative stools no abdominal pain Objective Vitals Vital Signs Date Time Temp Pulse Resp B/P Pulse Ox O2 Delivery O2 Flow Rate FiO2 09/24/16 09:56 96 Nasal Cannula 4.00 09/24/16 07:45 75 09/24/16 07:45 97.9 75 18 118/73 98 09/24/16 07:45 95 Nasal Cannula 2.00 09/24/16 06:00 80 09/24/16 05:00 75 09/24/16 04:00 80 09/24/16 03:30 99 Nasal Cannula 3.00 09/24/16 03:30 98.4 73 16 116/69 99 09/24/16 03:00 75 09/24/16 02:00 84 09/24/16 01:00 95 09/24/16 00:00 76 09/23/16 23:40 Nasal Cannula 4.00 09/23/16 23:30 98.5 77 16 117/73 99 09/23/16 23:30 99 Nasal Cannula 3.00 09/23/16 23:00 76 09/23/16 22:00 76 09/23/16 21:00 76 09/23/16 20:00 97 Nasal Cannula 3.00 09/23/16 20:00 76 09/23/16 19:30 98.6 77 16 114/68 97 09/23/16 19:00 94 09/23/16 18:00 124 09/23/16 17:00 82 09/23/16 16:00 88 09/23/16 15:52 95 Nasal Cannula 3.00 09/23/16 15:51 98.0 79 20 112/62 95 09/23/16 15:00 77 09/23/16 14:00 91 I/O 09/23/16 09/23/16 09/23/16 09/24/16 09/24/16 09/24/16 07:00 15:00 23:00 07:00 15:00 23:00 Intake Total 530 ml 675 ml 340 ml Output Total 2 ml 450 ml 150 ml Balance 528 ml 225 ml 190 ml Intake Oral 480 ml 625 ml 240 ml IV Total 50 ml 50 ml 100 ml Output Urine Total 2 ml 450 ml 150 ml # Voids 4 3 # Bowel Movements 0 0 0 Result Diagram: 09/24/16 0520 09/24/16 0520 Imaging Last Impressions Chest X-Ray 09/21/16 0000 Signed Impressions: Service Date/Time: Wednesday, September 21, 2016 05:06 - CONCLUSION: Patchy bilateral pulmonary consolidation. Senthil Nava MD Objective Remarks anicteric, NAD no JVD lungs no rales or wheezes regular rhtyhm abdomen soft, nontender extremities no edema neuro exam- unremarkable A/P Problem List: (1) Anemia ICD Code: D64.9 Status: Acute (2) Elevated troponin ICD Code: R74.8 Status: Acute (3) A-fib ICD Code: I48.91 Status: Acute (4) UTI (urinary tract infection) ICD Code: N39.0 Status: Acute (5) Osteomyelitis ICD Code: M86.9 Status: Acute Assessment and Plan 86-year-old male with Anemia: Critical Anemia on admission, Hgb 6.5, Hct 19.1. - Keep Hgb > 8.0. Transfuse 1 unit today - Per the patient's family, he has had multiple surgeries in the past few months related to osteomyelitis of his hip. - Has had some issues with anemia. Patient is status post PRBC transfusion. H& H stable. Continue to monitor. No signs of active bleeding. Rectal exam neg in the ed. - for transfusion 1 unit today - history of Atrial fibrillation:. - in SR History of AVR- bovine - Rate controlled on Metoprolol 50 mg daily. - no history of CVA - will hold Coumadin n light of severe anemia- will d/w with heamtology regarding resuming coumadin once H and H stable Elevated Trop: Remain flat, EKG w/ mild ST depressions and T-wave inversions, no previous EKG for comparison. No c/o chest pain. Likely secondary to cardiac strain from significant anemia. UTI: U/a w/ UTI, on IV Abx. Follow cultures Osteomyelitis: currently receiving IV Cefazolin 2gm IV q8h via Left PICC- present at time of admission. DVT Prophylaxis: Pharmacologic contraindication in light of above. Problem Qualifiers (1) Anemia: Qualified Code: D64.9 - Anemia, unspecified type Nancy Valdez MD Sep 24, 2016 13:23
[2016-09-24] MEDS: PRAVASTATIN SOD 40 MG TAB PO SCH (22:12)
[2016-09-24] MEDS: EZETIMIBE 10 MG TAB PO SCH (22:12)
[2016-09-25] VITALS (25 sets, daily range): BP systolic 112–127; BP diastolic 67–84; PULSE 76–108; RESP 14–20; TEMP 97.5–98.3; O2SAT 92–98
[2016-09-25 04:20] LABS: HEMATOCRIT 26.9 % (39.0-51.0); MEAN CELL VOLUME 92.4 FL (80.0-100.0); MEAN CORPUSCULAR HEMOGLOBIN 30.8 PG (27.0-34.0); MEAN CORPUSCULAR HGB CONC 33.3 % (32.0-36.0); PLATELET COUNT 159 TH/MM3 (150-450); RED BLOOD COUNT 2.91 MIL/MM3 (4.50-5.90); RED CELL DISTRIBUTION WIDTH 17.5 % (11.6-17.2); REVIEW FLAG FINAL; WHITE BLOOD COUNT 8.2 TH/MM3 (4.0-11.0)
[2016-09-25] MEDS: ACETAMINOPHEN/HYDROcodone 325 MG/10 MG TAB PO PRN (05:55)
[2016-09-25] MEDS: ceFAZolin 2 GM PREMIX 50 ML IV SCH ×3 (05:56→20:57)
[2016-09-25] MEDS: ZINC SULFATE 220 MG CAP PO SCH (09:53)
[2016-09-25] MEDS: MAGNESIUM HYDROXIDE SUSP 30 ML CUP PO PRN (09:53)
[2016-09-25] MEDS: METOPROLOL TARTRATE 50 MG TAB PO SCH (09:53)
[2016-09-25] MEDS: VALSARTAN 160 MG TAB PO SCH (09:53)
[2016-09-25] MEDS: BETAMETHASONE/CLOTRIMAZOLE CREAM 15 GM TOPICAL SCH ×2 (09:53→20:58)
[2016-09-25] MEDS: DOCUSATE SODIUM 50 MG/SENNA 8.6 MG TAB PO SCH ×2 (09:53→20:57)
[2016-09-25] MEDS: SODIUM CHLORIDE 0.9% FLUSH 10 ML FLUSH IV FLUSH SCH ×2 (09:53→20:57)
--- NOTE | 2016-09-25 12:04 | PD.ONC.PN ---
Subjective Subjective Remarks Afebrile overnight. Patient resting in room. No complaints. Denies pain. Objective Data Date Time Temp Pulse Resp B/P Pulse Ox O2 Delivery O2 Flow Rate FiO2 09/25/16 11:32 106 09/25/16 09:36 92 Nasal Cannula 3.00 09/25/16 08:08 98.3 89 14 122/67 92 09/25/16 08:00 93 Nasal Cannula 2.00 09/25/16 07:47 108 09/25/16 06:00 86 09/25/16 05:00 96 09/25/16 04:00 84 09/25/16 03:30 98 Nasal Cannula 2.00 09/25/16 03:30 98.3 88 16 112/71 98 09/25/16 03:00 88 09/25/16 02:00 86 09/25/16 01:00 84 09/25/16 00:00 95 09/24/16 23:30 98.6 88 16 106/66 96 09/24/16 23:30 96 Nasal Cannula 2.00 09/24/16 23:00 86 09/24/16 22:15 82 Room Air 09/24/16 22:15 96 Nasal Cannula 4.00 09/24/16 22:10 95 Nasal Cannula 2.00 09/24/16 22:00 90 09/24/16 21:35 99.9 90 18 104/58 94 09/24/16 21:00 94 09/24/16 20:00 78 09/24/16 19:30 99.0 86 16 112/51 96 09/24/16 19:30 96 Nasal Cannula 2.00 09/24/16 19:00 92 09/24/16 18:00 85 09/24/16 17:23 98.4 77 16 131/84 95 09/24/16 17:00 86 09/24/16 16:00 76 09/24/16 15:45 76 09/24/16 15:45 96 Nasal Cannula 2.00 09/24/16 15:45 98.9 76 18 133/57 98 09/24/16 15:45 76 09/24/16 15:45 95 Nasal Cannula 2.00 09/24/16 15:45 99.1 76 18 133/57 96 09/24/16 15:00 76 09/24/16 14:00 76 09/24/16 13:00 76 09/25/16 09/25/16 09/25/16 07:00 15:00 23:00 Intake Total 850 ml 360 ml Output Total 200 ml 200 ml Balance 650 ml 160 ml Result Diagram: 09/25/16 0355 09/24/16 0520 Laboratory Results Laboratory Tests Test 09/24/16 09/25/16 13:50 03:55 Blood Type B NEGATIVE Antibody Screen POSITIVE Crossmatch Leukocyte-Reduced Red Blood Cells Blood Bank Comment White Blood Count 8.2 TH/MM3 Red Blood Count 2.91 MIL/MM3 Hemoglobin 9.0 GM/DL Hematocrit 26.9 % Mean Corpuscular Volume 92.4 FL Mean Corpuscular Hemoglobin 30.8 PG Mean Corpuscular Hemoglobin 33.3 % Concent Red Cell Distribution Width 17.5 % Platelet Count 159 TH/MM3 Mean Platelet Volume 7.1 FL Administered Medications Medications (Trade) Dose Ordered Sig/Markell Route PRN Reason Start Time Stop Time Status Last Admin Dose Admin Sodium Chloride (NS Flush) 2 ml BID IV FLUSH 09/21/16 09:00 09/25/16 09:53 Ondansetron HCl (Zofran Inj) 4 mg Q6H PRN IVP NAUSEA OR VOMITING 09/21/16 02:15 09/21/16 17:15 Acetaminophen/ Hydrocodone Bitart (Bracey 5-325 Mg) 1 tab Q4H PRN PO PAIN SCALE 3 TO 5 09/21/16 02:15 09/24/16 00:57 Acetaminophen/ Hydrocodone Bitart (Bracey 10-325 Mg) 1 tab Q4H PRN PO PAIN SCALE 6 TO 10 09/21/16 02:15 09/25/16 05:55 Senna/Docusate Sodium (Radha-Colace) 1 tab BID PO 09/21/16 09:00 09/25/16 09:53 Magnesium Hydroxide (Milk Of Magnesia Liq) 30 ml Q12H PRN PO MILD - MODERATE CONSTIPATION 09/21/16 02:15 09/25/16 09:53 Lactulose (Lactulose Liq) 30 ml DAILY PRN PO SEVERE CONSITIPATION 09/21/16 02:15 09/25/16 05:56 Betamethasone/ Clotrimazole (Lotrisone Cream) 1 applic BID TOPICAL 09/21/16 09:00 09/25/16 09:53 Metoprolol Tartrate (Lopressor) 50 mg DAILY PO 09/21/16 09:00 09/25/16 09:53 Valsartan (Diovan) 320 mg DAILY PO 09/21/16 09:00 09/25/16 09:53 Zinc Sulfate (Zinc Sulfate) 220 mg DAILY PO 09/21/16 09:00 09/25/16 09:53 EZETIMIBE (Zetia) 10 mg HS PO 09/21/16 21:00 09/24/16 22:12 Pravastatin Sodium 40 mg 40 mg HS PO 09/21/16 21:00 09/24/16 22:12 Cefazolin Sodium/ Dextrose (Ancef 2 Gm Premix) 50 ml @ 100 mls/hr Q8H IV 09/21/16 06:00 09/25/16 05:56 Objective Remarks GENERAL: Elderly male, sitting up chair in NAD. SKIN: Warm and dry. HEAD: Normocephalic. EYES: no injection or drainage. NECK: Supple, trachea midline. CARDIOVASCULAR: +S1/S2 RESPIRATORY: scattered rhonchi. GASTROINTESTINAL: Abdomen soft, non-tender, nondistended. EXTREMITIES: No cyanosis. NEUROLOGICAL: aox3. normal speech. moving all extremities. Assessment/Plan Problem List: (1) Normocytic normochromic anemia Status: Acute Plan: 09/25: no transfusion needed today. okay to resume coumadin. clear for discharge. 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 --B12, folate and iron studies do not show any deficiency. --heme-negative stools --transfuse blood for hgb<8 --fs faxed to new patient referrals for follow up (2) Osteomyelitis Status: Acute Plan: --s/p 6 weeks of Rocephin therapy and then had recurrence-->now is back on IV antibiotic with cefazolin. Assessment 86y/o male with persistent anemia. history of osteomyelitis h/o Heart valve disease. Arthritis. Atrial fibrillation. Bovine heart valve replacement. Right hip surgery. Attending Statement Patient feels better Denies any bleeding Coumadin restarted Hemoglobin improved after the Transfusion yesterday clear for discharge from my standpoint Samaria Bey Sep 25, 2016 12:04 Shaneka Epstein MD Sep 26, 2016 01:25
--- NOTE | 2016-09-25 17:03 | HHI.PR ---
Subjective Remarks no complains of pain, nausea or vomiting, no melena or hematochezia voiding spontaenously - no dysuria Objective Vitals Vital Signs Date Time Temp Pulse Resp B/P Pulse Ox O2 Delivery O2 Flow Rate FiO2 09/25/16 15:00 92 Nasal Cannula 3.00 09/25/16 13:00 100 09/25/16 12:00 97.5 106 20 121/70 96 09/25/16 12:00 96 Nasal Cannula 2.00 09/25/16 12:00 84 09/25/16 11:32 106 09/25/16 09:36 92 Nasal Cannula 3.00 09/25/16 08:08 98.3 89 14 122/67 92 09/25/16 08:00 93 Nasal Cannula 2.00 09/25/16 07:47 108 09/25/16 06:00 86 09/25/16 05:00 96 09/25/16 04:00 84 09/25/16 03:30 98 Nasal Cannula 2.00 09/25/16 03:30 98.3 88 16 112/71 98 09/25/16 03:00 88 09/25/16 02:00 86 09/25/16 01:00 84 09/25/16 00:00 95 09/24/16 23:30 98.6 88 16 106/66 96 09/24/16 23:30 96 Nasal Cannula 2.00 09/24/16 23:00 86 09/24/16 22:15 82 Room Air 09/24/16 22:15 96 Nasal Cannula 4.00 09/24/16 22:10 95 Nasal Cannula 2.00 09/24/16 22:00 90 09/24/16 21:35 99.9 90 18 104/58 94 09/24/16 21:00 94 09/24/16 20:00 78 09/24/16 19:30 99.0 86 16 112/51 96 09/24/16 19:30 96 Nasal Cannula 2.00 09/24/16 19:00 92 09/24/16 18:00 85 09/24/16 17:23 98.4 77 16 131/84 95 I/O 09/24/16 09/24/16 09/24/16 09/25/16 09/25/16 09/25/16 07:00 15:00 23:00 07:00 15:00 23:00 Intake Total 340 ml 775 ml 850 ml 360 ml Output Total 150 ml 200 ml 200 ml Balance 190 ml 775 ml 650 ml 160 ml Intake Oral 240 ml 675 ml 300 ml 360 ml IV Total 100 ml 100 ml 100 ml Packed Cells 450 ml Output Urine Total 150 ml 200 ml 200 ml # Voids 3 4 2 # Bowel Movements 0 0 0 0 Result Diagram: 09/25/16 0355 09/24/16 0520 Imaging Last Impressions Chest X-Ray 09/21/16 0000 Signed Impressions: Service Date/Time: Wednesday, September 21, 2016 05:06 - CONCLUSION: Patchy bilateral pulmonary consolidation. Senthil Nava MD Objective Remarks anicteric, NAD no JVD lungs no rales or wheezes regular rhythm abdomen soft, nontender extremities no edema neuro exam- unremarkable A/P Problem List: (1) Anemia ICD Code: D64.9 Status: Acute (2) Elevated troponin ICD Code: R74.8 Status: Acute (3) A-fib ICD Code: I48.91 Status: Acute (4) UTI (urinary tract infection) ICD Code: N39.0 Status: Acute (5) Osteomyelitis ICD Code: M86.9 Status: Acute Assessment and Plan 86-year-old male with Anemia: Critical Anemia - S/P BT 09/24- - H and H improved - Keep Hgb > 8.0. - Per the patient's family, he has had multiple surgeries in the past few months related to osteomyelitis of his hip. - Has had some issues with anemia. Patient is status post PRBC transfusion. H& H stable. Continue to monitor. No signs of active bleeding. Rectal exam neg in the ed. - history of Atrial fibrillation:. - in SR History of AVR- bovine - Rate controlled on Metoprolol 50 mg daily. - no history of CVA - restart coumadin- cleared with Hematology - check INR now Elevated Trop: Remain flat, EKG w/ mild ST depressions and T-wave inversions, no previous EKG for comparison. No c/o chest pain. Likely secondary to cardiac strain from significant anemia. UTI: cultures- mixed- -contaminants- Osteomyelitis: currently receiving IV Cefazolin 2gm IV q8h via Left PICC- present at time of admission. DVT Prophylaxis: patient back on coumadin Problem Qualifiers (1) Anemia: Qualified Code: D64.9 - Anemia, unspecified type Nancy Valdez MD Sep 25, 2016 17:03
[2016-09-25 17:54] LABS: INTERNATIONAL NORMALIZED RATIO 1.4 RATIO; PROTHROMBIN TIME - PATIENT 15.4 SEC (9.8-11.6)
[2016-09-25] MEDS: PRAVASTATIN SOD 40 MG TAB PO SCH (20:56)
[2016-09-25] MEDS: EZETIMIBE 10 MG TAB PO SCH (20:56)
[2016-09-26] VITALS (20 sets, daily range): BP systolic 103–140; BP diastolic 64–85; PULSE 74–148; RESP 18–20; TEMP 97.7–99; O2SAT 91–97
[2016-09-26] MEDS: ceFAZolin 2 GM PREMIX 50 ML IV SCH ×3 (06:14→21:09)
[2016-09-26] MEDS ORDERED: DILTIAZEM HCL 25 MG/5 ML VIAL IVP ONE (08:30)
[2016-09-26] MEDS ORDERED: DILTIAZEM INJ 125 MG in SODIUM CHLORIDE 0.9% INJ 100 ML IV SCH (08:30)
--- NOTE | 2016-09-26 08:36 | HHI.PR ---
Subjective Remarks this am went into rapid a fib- appears anxious - telemetry 130s complains of pain leg with bending no complains of chest pain, complain feel short of breath- Sats. 88% Objective Vitals Vital Signs Date Time Temp Pulse Resp B/P Pulse Ox O2 Delivery O2 Flow Rate FiO2 09/26/16 07:00 106 09/26/16 06:00 92 09/26/16 05:00 78 09/26/16 04:00 92 Nasal Cannula 2.00 09/26/16 04:00 98.3 81 18 126/82 92 09/26/16 04:00 84 09/26/16 03:00 104 09/26/16 02:00 78 09/26/16 01:00 78 09/26/16 00:00 78 09/26/16 00:00 97 Nasal Cannula 2.00 09/26/16 00:00 98.2 78 18 126/70 97 09/25/16 23:00 78 09/25/16 22:00 78 09/25/16 21:47 Nasal Cannula 2.00 09/25/16 21:00 92 09/25/16 20:30 98.3 77 18 127/68 98 09/25/16 20:30 98 Nasal Cannula 2.00 09/25/16 20:00 76 09/25/16 19:00 77 09/25/16 18:00 77 09/25/16 17:00 76 09/25/16 16:00 76 09/25/16 15:00 92 Nasal Cannula 3.00 09/25/16 15:00 97.5 79 20 112/84 92 09/25/16 15:00 96 09/25/16 14:00 100 09/25/16 13:00 100 09/25/16 12:00 97.5 106 20 121/70 96 09/25/16 12:00 96 Nasal Cannula 2.00 09/25/16 12:00 84 09/25/16 11:32 106 09/25/16 09:36 92 Nasal Cannula 3.00 I/O 09/25/16 09/25/16 09/25/16 09/26/16 09/26/16 09/26/16 07:00 15:00 23:00 07:00 15:00 23:00 Intake Total 850 ml 360 ml 410 ml 480 ml Output Total 200 ml 200 ml 450 ml 635 ml Balance 650 ml 160 ml -40 ml -155 ml Intake Oral 300 ml 360 ml 360 ml 480 ml IV Total 100 ml Packed Cells 450 ml 50 ml Output Urine Total 200 ml 200 ml 450 ml 635 ml # Voids 2 5 # Bowel Movements 0 0 0 0 Result Diagram: 09/25/16 0355 09/24/16 0520 Imaging Last Impressions Chest X-Ray 09/21/16 0000 Signed Impressions: Service Date/Time: Wednesday, September 21, 2016 05:06 - CONCLUSION: Patchy bilateral pulmonary consolidation. Senthil Nava MD Objective Remarks anicteric, NAD no JVD lungs decrease breath sounds, no rales or wheezes Irregularly irregular rhythm- HR 130s abdomen soft, nontender extremities no edema , no calf swelling neuro exam- unremarkable A/P Problem List: (1) Anemia ICD Code: D64.9 Status: Acute (2) Elevated troponin ICD Code: R74.8 Status: Acute (3) A-fib ICD Code: I48.91 Status: Acute (4) UTI (urinary tract infection) ICD Code: N39.0 Status: Acute (5) Osteomyelitis ICD Code: M86.9 Status: Acute Assessment and Plan 86-year-old male with Anemia: Critical Anemia - S/P BT 09/24- - H and H improved - Stat CBC now with a fib- RVR - Keep Hgb > 8.0. . . - Has had some issues with anemia. Patient is status post PRBC transfusion. H& H stable. Continue to monitor. No signs of active bleeding. Rectal exam neg in the ed - cleared by Hematology to start anticoagulation- - A fib in RVR -history of Atrial fibrillation:. - paroxysmal- this am back into rapid a fib History of AVR- bovine CHF -on Metoprolol 50 mg daily.= give Cardizem IV push and start drip - cardiology consult- Known to Dr. Allison- - get stat labs now - no history of CVA - restart coumadin- cleared with Hematology- check stat CBC, INR now - continue Lasix. on ARB - stat EKG- ST depresision, T wave inversion 1. AVL, V4-V6 -02 2 LNC Elevated Trop: Remain flat, EKG w/ mild ST depressions and T-wave inversions, no previous EKG for comparison. No c/o chest pain. Likely secondary to cardiac strain from significant anemia. - stat EKG- ST depression and T wave inversion- similar to admission-rapid fib rhythm - stat troponin UTI: cultures- mixed- -contaminants- recheck UA Osteomyelitis: hip currently receiving IV Cefazolin 2gm IV q8h via Left PICC- present at time of admission. - PT ongoing- pivot DVT Prophylaxis: on coumadin - Lovenox if INR subtherapeutic Problem Qualifiers (1) Anemia: Qualified Code: D64.9 - Anemia, unspecified type Nancy Valdez MD Sep 26, 2016 08:36
[2016-09-26] MEDS: ZINC SULFATE 220 MG CAP PO SCH (08:45)
[2016-09-26] MEDS: ACETAMINOPHEN/HYDROcodone 325 MG/10 MG TAB PO PRN (08:45)
[2016-09-26] MEDS: METOPROLOL TARTRATE 50 MG TAB PO SCH (08:45)
[2016-09-26] MEDS: VALSARTAN 160 MG TAB PO SCH (08:45)
[2016-09-26] MEDS: DOCUSATE SODIUM 50 MG/SENNA 8.6 MG TAB PO SCH ×2 (08:45→20:29)
[2016-09-26] MEDS: SODIUM CHLORIDE 0.9% FLUSH 10 ML FLUSH IV FLUSH SCH ×2 (08:46→20:29)
[2016-09-26 08:53] LABS: AUTOMATED NEUTROPHIL # 7.4 TH/MM3 (1.8-7.7); BASOPHIL # 0.1 TH/MM3 (0-0.2); BASOPHIL % 0.8 % (0.0-2.0); EOSINOPHIL # 0.3 TH/MM3 (0-0.4); EOSINOPHIL % 3.4 % (0.0-4.0); HEMATOCRIT 28.9 % (39.0-51.0); HEMO FLAGS DIFF FINAL; LYMPH % 9.8 % (9.0-44.0); LYMPHOCYTE # 0.9 TH/MM3 (1.0-4.8); MEAN CELL VOLUME 88.2 FL (80.0-100.0); MEAN CORPUSCULAR HEMOGLOBIN 29.4 PG (27.0-34.0); MEAN CORPUSCULAR HGB CONC 33.4 % (32.0-36.0); MONO % 9.1 % (0.0-8.0); NEUT % 76.9 % (16.0-70.0); PLATELET COUNT 151 TH/MM3 (150-450); RED BLOOD COUNT 3.28 MIL/MM3 (4.50-5.90); RED CELL DISTRIBUTION WIDTH 18.2 % (11.6-17.2); WHITE BLOOD COUNT 9.6 TH/MM3 (4.0-11.0)
[2016-09-26] MEDS: BETAMETHASONE/CLOTRIMAZOLE CREAM 15 GM TOPICAL SCH ×2 (09:00→20:31)
[2016-09-26 09:05] LABS: INTERNATIONAL NORMALIZED RATIO 1.4 RATIO; PROTHROMBIN TIME - PATIENT 15.4 SEC (9.8-11.6)
[2016-09-26 09:20] LABS: ANION GAP 10 MEQ/L (5-15); AST (GOT) 32 U/L (15-37); BICARBONATE 28.5 MEQ/L (21.0-32.0); BLOOD UREA NITROGEN 17 MG/DL (7-18); CHLORIDE 95 MEQ/L (98-107); GLOMERULAR FILTRATION RATE 99 ML/MIN (>89); SODIUM (NA) 133 MEQ/L (136-145)
[2016-09-26 09:21] LABS: ALT (GPT) 7 U/L (12-78)
[2016-09-26 09:23] LABS: ALKALINE PHOSPHATASE 179 U/L (45-117); TOTAL BILIRUBIN ADULT 1.3 MG/DL (0.2-1.0)
--- NOTE | 2016-09-26 09:28 | RADRPT ---
EXAM DATE/TIME: 09/26/2016 08:43 [facility] COMPARISON: CHEST SINGLE AP, September 21, 2016, 5:06. INDICATIONS : Short of breath. Cough. MEDICAL HISTORY : None. SURGICAL HISTORY : None. ENCOUNTER: Subsequent ACUITY: 4 - 6 days PAIN SCORE: 0/10 LOCATION: Bilateral chest FINDINGS: There has been interval worsening of the diffuse infiltrates bilaterally consistent with worsening pu lmonary edema versus pneumonia. Clinical correlation is recommended. A left sided PICC line has its tip in the right atrium. Median sternotomy wires are noted status post cardiac surgery. Aortic and mitral valve replacements are noted. The heart is mildly enlarged. Degenerative changes and scolio sis of the thoracolumbar spine are noted. Degenerative changes are noted involving the left shoulder joint. CONCLUSION: 1. Interval worsening, patchy infiltrates bilaterally consistent with worsening pulmonary edema versu s pneumonia. Clinical correlation is recommended. 2. Cardiomegaly. Marty Givens MD on September 26, 2016 at 9:05 Board Certified Radiologist. This report was verified electronically.
[2016-09-26 13:35] LABS: BACTERIA, URINE FEW /hpf; BLOOD, URINE MOD (NEG); COMMENT (UR) CULTURE INDICATED; CULTURE IF INDICATED CULTURE INDICATED; GLUCOSE,URINE NEG (NEG); KETONE, URINE NEG (NEG); MUCUS URINE FEW /lpf (OCC); NITRITE,URINE POS (NEG); SQUAMOUS EPITHELIAL CELL URINE 9 /hpf (0-5); URINE COLOR DARK-YELLOW (YELLW/STRAW)
--- NOTE | 2016-09-26 14:20 | EKG ---
Date Performed: 09/26/2016 Time Performed: 08:50:24 PTAGE: 86 years EKG: Atrial fibrillation with rapid ventricular response. Leftward axis IV conduction defect Lef t ventricular hypertrophy Nonspecific ST-T wave changes Abnormal ECG NO PREVIOUS TRACING DOCTOR: Luis Dawkins Interpretating Date/Time 09/26/2016 14:19:37
--- NOTE | 2016-09-26 14:56 | PD.ONC.PN ---
Subjective Subjective Remarks Afebrile overnight. patient seen at 11AM. Daughter at bedside. No complaints. Patient resting comfortably. Objective Data Date Time Temp Pulse Resp B/P Pulse Ox O2 Delivery O2 Flow Rate FiO2 09/26/16 13:00 75 09/26/16 12:00 75 09/26/16 11:00 76 09/26/16 11:00 97.9 76 20 103/65 93 09/26/16 11:00 93 Nasal Cannula 2.00 09/26/16 10:01 18 09/26/16 10:00 74 09/26/16 09:00 114 09/26/16 08:00 98.2 148 20 140/77 91 09/26/16 08:00 148 09/26/16 08:00 91 Nasal Cannula 2.00 09/26/16 07:00 106 09/26/16 06:00 92 09/26/16 05:00 78 09/26/16 04:00 92 Nasal Cannula 2.00 09/26/16 04:00 98.3 81 18 126/82 92 09/26/16 04:00 84 09/26/16 03:00 104 09/26/16 02:00 78 09/26/16 01:00 78 09/26/16 00:00 78 09/26/16 00:00 97 Nasal Cannula 2.00 09/26/16 00:00 98.2 78 18 126/70 97 09/25/16 23:00 78 09/25/16 22:00 78 09/25/16 21:47 Nasal Cannula 2.00 09/25/16 21:00 92 09/25/16 20:30 98.3 77 18 127/68 98 09/25/16 20:30 98 Nasal Cannula 2.00 09/25/16 20:00 76 09/25/16 19:00 77 09/25/16 18:00 77 09/25/16 17:00 76 09/25/16 16:00 76 09/25/16 15:00 92 Nasal Cannula 3.00 09/25/16 15:00 97.5 79 20 112/84 92 09/25/16 15:00 96 09/26/16 09/26/16 09/26/16 07:00 15:00 23:00 Intake Total 480 ml Output Total 635 ml Balance -155 ml Result Diagram: 09/26/16 0830 09/26/16 0830 Laboratory Results Laboratory Tests Test 09/25/16 09/26/16 09/26/16 17:39 08:30 13:03 Prothrombin Time 15.4 SEC 15.4 SEC Prothromb Time International 1.4 RATIO 1.4 RATIO Ratio White Blood Count 9.6 TH/MM3 Red Blood Count 3.28 MIL/MM3 Hemoglobin 9.6 GM/DL Hematocrit 28.9 % Mean Corpuscular Volume 88.2 FL Mean Corpuscular Hemoglobin 29.4 PG Mean Corpuscular Hemoglobin 33.4 % Concent Red Cell Distribution Width 18.2 % Platelet Count 151 TH/MM3 Mean Platelet Volume 7.1 FL Neutrophils (%) (Auto) 76.9 % Lymphocytes (%) (Auto) 9.8 % Monocytes (%) (Auto) 9.1 % Eosinophils (%) (Auto) 3.4 % Basophils (%) (Auto) 0.8 % Neutrophils # (Auto) 7.4 TH/MM3 Lymphocytes # (Auto) 0.9 TH/MM3 Monocytes # (Auto) 0.9 TH/MM3 Eosinophils # (Auto) 0.3 TH/MM3 Basophils # (Auto) 0.1 TH/MM3 CBC Comment DIFF FINAL Differential Comment Sodium Level 133 MEQ/L Potassium Level 4.0 MEQ/L Chloride Level 95 MEQ/L Carbon Dioxide Level 28.5 MEQ/L Anion Gap 10 MEQ/L Blood Urea Nitrogen 17 MG/DL Creatinine 0.75 MG/DL Estimat Glomerular Filtration 99 ML/MIN Rate Random Glucose 110 MG/DL Calcium Level 8.3 MG/DL Total Bilirubin 1.3 MG/DL Aspartate Amino Transf 32 U/L (AST/SGOT) Alanine Aminotransferase 7 U/L (ALT/SGPT) Alkaline Phosphatase 179 U/L Troponin I 0.12 NG/ML B-Type Natriuretic Peptide 750 PG/ML Total Protein 7.3 GM/DL Albumin 2.5 GM/DL Urine Color DARK-YELLOW Urine Turbidity HAZY Urine pH 6.0 Urine Specific Rogers 1.025 Urine Protein 100 mg/dL Urine Glucose (UA) NEG mg/dL Urine Ketones NEG mg/dL Urine Occult Blood MOD Urine Nitrite POS Urine Bilirubin NEG Urine Urobilinogen LESS THAN 2.0 MG/DL Urine Leukocyte Esterase LARGE Urine RBC 7 /hpf Urine WBC 97 /hpf Urine Squamous Epithelial 9 /hpf Cells Urine Bacteria FEW /hpf Urine Mucus FEW /lpf Microscopic Urinalysis Comment CULTURE INDICATED Culture Results Microbiology Date/Time Procedure Status Source Growth 09/26/16 13:03 Urine Culture Received Urine Clean Catch Pending Imaging Studies Last 24 hours Impressions Chest X-Ray 09/26/16 0000 Signed Impressions: Service Date/Time: Monday, September 26, 2016 08:43 - CONCLUSION: 1. Interval worsening, patchy infiltrates bilaterally consistent with worsening pulmonary edema versus pneumonia. Clinical correlation is recommended. 2. Cardiomegaly. Marty Givens MD Administered Medications Medications (Trade) Dose Ordered Sig/Markell Route PRN Reason Start Time Stop Time Status Last Admin Dose Admin Sodium Chloride (NS Flush) 2 ml BID IV FLUSH 09/21/16 09:00 09/26/16 08:46 Ondansetron HCl (Zofran Inj) 4 mg Q6H PRN IVP NAUSEA OR VOMITING 09/21/16 02:15 09/21/16 17:15 Acetaminophen/ Hydrocodone Bitart ([place] 5-325 Mg) 1 tab Q4H PRN PO PAIN SCALE 3 TO 5 09/21/16 02:15 09/24/16 00:57 Acetaminophen/ Hydrocodone Bitart ([place] 10-325 Mg) 1 tab Q4H PRN PO PAIN SCALE 6 TO 10 09/21/16 02:15 09/26/16 08:45 Senna/Docusate Sodium (Radha-Colace) 1 tab BID PO 09/21/16 09:00 09/26/16 08:45 Magnesium Hydroxide (Milk Of Magnesia Liq) 30 ml Q12H PRN PO MILD - MODERATE CONSTIPATION 09/21/16 02:15 09/25/16 09:53 Lactulose (Lactulose Liq) 30 ml DAILY PRN PO SEVERE CONSITIPATION 09/21/16 02:15 09/25/16 05:56 Betamethasone/ Clotrimazole (Lotrisone Cream) 1 applic BID TOPICAL 09/21/16 09:00 09/26/16 09:00 Metoprolol Tartrate (Lopressor) 50 mg DAILY PO 09/21/16 09:00 09/26/16 08:45 Valsartan (Diovan) 320 mg DAILY PO 09/21/16 09:00 09/26/16 08:45 Zinc Sulfate (Zinc Sulfate) 220 mg DAILY PO 09/21/16 09:00 09/26/16 08:45 EZETIMIBE (Zetia) 10 mg HS PO 09/21/16 21:00 09/25/16 20:56 Pravastatin Sodium 40 mg 40 mg HS PO 09/21/16 21:00 09/25/16 20:56 Cefazolin Sodium/ Dextrose 50 ml @ 100 mls/hr Q8H IV 09/21/16 06:00 09/26/16 14:43 Diltiazem HCl/ Sodium Chloride (Cardizem Inj/NS Inj) 125 ml @ 0 mls/hr TITRATE IV 09/26/16 08:30 09/26/16 09:17 Objective Remarks GENERAL: Elderly male, sitting up in bed with daughter at bedside. SKIN: Warm and dry. HEAD: Normocephalic. EYES: no injection or drainage. NECK: Supple, trachea midline. CARDIOVASCULAR: +S1/S2 RESPIRATORY: occasional rhonchi. GASTROINTESTINAL: Abdomen soft, non-tender, nondistended. EXTREMITIES: No cyanosis. NEUROLOGICAL: awake and alert, normal speech. moving all extremities. Assessment/Plan Problem List: (1) Normocytic normochromic anemia Status: Acute Plan: 09/26: ok to resume coumadin. 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 --B12, folate and iron studies do not show any deficiency. --heme-negative stools --transfuse blood for hgb<8 --fs faxed to new patient referrals for follow up (2) Osteomyelitis Status: Acute Plan: --s/p 6 weeks of Rocephin therapy and then had recurrence-->now is back on IV antibiotic with cefazolin. Assessment 86y/o male with persistent anemia. history of osteomyelitis h/o Heart valve disease. Arthritis. Atrial fibrillation. Bovine heart valve replacement. Right hip surgery. Attending Statement Denies any new complaints Feels better Hemoglobin is improving .Today is 9.6 Continue Coumadin Can be discharge from my standpoint Follow up as an outpatient The exam, history, and the medical decision-making described in the above note were completed with the assistance of the mid-level provider. I reviewed and agree with the findings presented. I attest that I had a [id number] encounter with the patient on the same day, and personally performed and documented my assessment and findings in the medical record. Samaria Bey Sep 26, 2016 14:56 Shaneka Epstein MD Sep 27, 2016 06:28
[2016-09-26] MEDS ORDERED: WARFARIN SOD 5 MG TAB PO ONE (19:15)
[2016-09-26] MEDS: EZETIMIBE 10 MG TAB PO SCH (20:29)
[2016-09-26] MEDS: PRAVASTATIN SOD 40 MG TAB PO SCH (20:29)
[2016-09-26] MEDS: LEVOFLOXACIN 500 MG TAB PO SCH (20:37)
[2016-09-26] MEDS: FUROSEMIDE 20 MG/2 ML VIAL IV PUSH SCH (20:39)
[2016-09-27] VITALS (21 sets, daily range): BP systolic 109–146; BP diastolic 65–78; PULSE 54–120; RESP 16–20; TEMP 97.9–98.6; O2SAT 92–100
[2016-09-27] MEDS: ceFAZolin 2 GM PREMIX 50 ML IV SCH ×3 (06:03→21:14)
[2016-09-27 08:00] LABS: INTERNATIONAL NORMALIZED RATIO 1.5 RATIO; PROTHROMBIN TIME - PATIENT 16.5 SEC (9.8-11.6)
[2016-09-27] MEDS: SODIUM CHLORIDE 0.9% FLUSH 10 ML FLUSH IV FLUSH SCH ×2 (08:29→21:13)
[2016-09-27] MEDS: BETAMETHASONE/CLOTRIMAZOLE CREAM 15 GM TOPICAL SCH ×2 (08:29→21:14)
[2016-09-27] MEDS: ZINC SULFATE 220 MG CAP PO SCH (08:29)
[2016-09-27] MEDS: FUROSEMIDE 20 MG/2 ML VIAL IV PUSH SCH (08:29)
[2016-09-27] MEDS: DOCUSATE SODIUM 50 MG/SENNA 8.6 MG TAB PO SCH ×2 (08:29→21:13)
[2016-09-27] MEDS: METOPROLOL TARTRATE 50 MG TAB PO SCH ×2 (08:29→21:13)
[2016-09-27] MEDS: LEVOFLOXACIN 500 MG TAB PO SCH (08:29)
[2016-09-27] MEDS: VALSARTAN 160 MG TAB PO SCH (08:29)
--- NOTE | 2016-09-27 09:24 | MB ---
cc: UMANG ALLISON M.D., CAMILLE MD DATE OF CONSULTATION 09/26/2016 Thank you, Dr. Tim, for asking me to see this very pleasant 86-year-old male who presents with multiple medical problems, primarily very severe anemia with hemoglobin of 6, atrial fibrillation with a rapid ventricular response, elevated troponin, severe osteomyelitis and UTI. The patient has a history of osteomyelitis on IV antibiotics and she is now very ill with osteomyelitis and atrial fibrillation with rapid ventricular response for cardiology consultation. PAST MEDICAL HISTORY Positive for: 1. Double valve replacement which was carried out remotely by Dr. Carson. 2. He also has a history of chronic atrial fibrillation. 3. Hypertension 4. Osteomyelitis 5. IV antibiotics 6. Coumadin PAST SURGICAL HISTORY Is positive for the patient having had a right hip replacement. ALLERGIES Include HEPARIN AND IODINE. SOCIAL HISTORY Nonsmoker, nondrinker. No drugs. Lives at [facility] for rehabilitation. The patient is a poor historian at this time and a lot of his records have been obtained from the chart ALLERGIES Include HEPARIN AND IODINE. REVIEW OF SYSTEMS At this point he is stable, but feels weak and exhausted. PHYSICAL EXAM On examination, pulse was 76, blood pressure 130/64, respirations 20. EYES: Showed no xanthelasma. MOUTH: Showed no cyanosis or pallor. NECK: Showed no JVD. HEART: He had two heart sounds with a prosthetic click. Sternotomy scar. CHEST: Clear. ABDOMEN: Soft. EXTREMITIES: No evidence of edema. LABORATORY TESTS White count was 9.6, hemoglobin now 9.6, MCV was 88.2, platelet count 151,000, sed rate is 60, haptoglobin 47, alkaline phosphatase 179, troponin-I 0.12, BUN 17, creatinine 0.75. MEDICATIONS Medications include: 1. Coumadin 2. Levaquin 3. Furosemide 4. Diltiazem 5. Zetia 6. Pravastatin 7. Sodium chloride 8. Metoprolol 9. Diovan 10. Zinc 11. Albuterol EKG was read as showing atrial fibrillation with rapid ventricular response. ASSESSMENT AND PLAN At this point, he has atrial fibrillation with a rapid response. I feel his to Cardidavis. The patient had his p.o. Metoprolol increased if his blood pressure will tolerate. Thank you kindly for asking us to see this very pleasant gentleman. If this does not optimally control his heart rate, we may consider putting him on oral Cardizem. Umang Allison MD, CP,[facility]/DJL /9:52 PM /9:02 AM ROBERT
[2016-09-27 10:43] LABS: BICARBONATE 30.7 MEQ/L (21.0-32.0); POTASSIUM 3.2 MEQ/L (3.5-5.1)
--- NOTE | 2016-09-27 10:55 | HHI.PR ---
Subjective Remarks rate occasionally goes to 150s last night VT- asymptomatic 3 beats Objective Vitals Vital Signs Date Time Temp Pulse Resp B/P Pulse Ox O2 Delivery O2 Flow Rate FiO2 09/27/16 08:34 92 Nasal Cannula 4.00 09/27/16 08:10 97.9 75 16 146/78 94 09/27/16 04:00 79 09/27/16 04:00 98 Nasal Cannula 2.00 09/27/16 04:00 97.9 105 18 122/78 97 09/27/16 00:00 98.4 86 20 114/75 98 09/27/16 00:00 76 09/27/16 00:00 98 Nasal Cannula 2.00 09/26/16 20:00 96 Nasal Cannula 2.00 09/26/16 20:00 79 09/26/16 20:00 99.0 80 20 132/85 96 09/26/16 18:00 83 09/26/16 17:00 77 09/26/16 16:00 76 09/26/16 15:00 97.7 76 20 113/64 94 09/26/16 15:00 76 09/26/16 15:00 94 Nasal Cannula 2.00 09/26/16 14:00 76 09/26/16 13:00 75 09/26/16 12:00 75 09/26/16 11:00 76 09/26/16 11:00 97.9 76 20 103/65 93 09/26/16 11:00 93 Nasal Cannula 2.00 I/O 09/26/16 09/26/16 09/26/16 09/27/16 09/27/16 09/27/16 07:00 15:00 23:00 07:00 15:00 23:00 Intake Total 480 ml 290 ml 340 ml Output Total 635 ml 750 ml 1500 ml Balance -155 ml -460 ml -1160 ml Intake Oral 480 ml 240 ml 240 ml IV Total 50 ml 100 ml Output Urine Total 635 ml 750 ml 1500 ml # Voids 5 # Bowel Movements 0 0 0 Result Diagram: 09/26/16 0830 09/27/16 0900 Imaging Last Impressions Chest X-Ray 09/26/16 0000 Signed Impressions: Service Date/Time: Monday, September 26, 2016 08:43 - CONCLUSION: 1. Interval worsening, patchy infiltrates bilaterally consistent with worsening pulmonary edema versus pneumonia. Clinical correlation is recommended. 2. Cardiomegaly. Marty Givens MD Objective Remarks anicteric, NAD no JVD lungs decrease breath sounds, few basal rales or wheezes Irregularly irregular rhythm- 80s abdomen soft, nontender extremities no edema , no calf swelling neuro exam- unremarkable A/P Problem List: (1) Anemia ICD Code: D64.9 Status: Acute (2) Elevated troponin ICD Code: R74.8 Status: Acute (3) A-fib ICD Code: I48.91 Status: Acute (4) UTI (urinary tract infection) ICD Code: N39.0 Status: Acute (5) Osteomyelitis ICD Code: M86.9 Status: Acute Assessment and Plan 86-year-old male with Anemia: Critical Anemia - S/P BT 09/24- - H and H improved - Keep Hgb > 8.0. . . - Has had some issues with anemia. Patient is status post PRBC transfusion. H& H stable. Continue to monitor. No signs of active bleeding. Rectal exam neg in the ed - cleared by Hematology to start anticoagulation- ff INR - A fib in RVR -history of Atrial fibrillation:. - paroxysmal-last evening 130s History of AVR- bovine CHF - check echo - continue Lasix change to po -on Metoprolol 50 mg daily.- increase to bid - off cardizem drip . On Valsartan 320 mg daily- ff BP- with bid Metorpolol for rate control- adjust Valsartan dose if need - cardiology consult- Known to Dr. Allison- - ff - no history of CVA - restart coumadin- cleared with Hematology - stat EKG- ST depresision, T wave inversion 1. AVL, V4-V6 -02 2 LNC Elevated Trop: Remain flat, EKG w/ mild ST depressions and T-wave inversions, no previous EKG for comparison. No c/o chest pain. Likely secondary to cardiac strain from significant anemia. - stat EKG- ST depression and T wave inversion- similar to admission-rapid fib rhythm - stat troponin UTI: cultures-gram negative rods- started Levaquin 09/26 Osteomyelitis: hip currently receiving IV Cefazolin 2gm IV q8h via Left PICC- present at time of admission. - PT ongoing- pivot DVT Prophylaxis: on coumadin - Lovenox if INR subtherapeutic Problem Qualifiers (1) Anemia: Qualified Code: D64.9 - Anemia, unspecified type Nancy Valdez MD Sep 27, 2016 10:55
[2016-09-27 10:56] LABS: CALCIUM-PROTEIN CORRECTED 7.6 MG/DL (8.5-10.1)
[2016-09-27] MEDS ORDERED: POTASSIUM CHLORIDE 20 MEQ CONTROLLED RELEASE TAB PO ONE (11:00)
[2016-09-27] MEDS ORDERED: WARFARIN SOD 7.5 MG TAB PO ONE (16:00)
--- NOTE | 2016-09-27 17:18 | ECHRPT ---
Indication: Persistent atrial fibrillation CONCLUSIONS Normal left ventricular size. The left ventricular systolic function is severely reduced with an estimated ejection fraction in th e range of 20-25%. Trace mitral valve regurgitation. Normally functioning mitral valve bioprosthesis. MVA 2.1No aortic valve regurgitation. The aortic valve prosthesis is normal to two-dimensional, color flow and Doppler interrogation. Max gradient 15 mean 9 TREVON 1.0 There is mild tricuspid valve regurgitation. There is estimated moderate pulmonary hypertension present (range 50-60 mmHg). IVC 1.7There is global left ventricular dysfunction. There is global left ventricular dysfunction. BP: 140 / 77 HR: 148 Rhythm: Sinus MEASUREMENTS (Male / Female) Normal Values Technical Quality:Good 2D ECHO LV Diastolic Diameter PLAX 4.6 cm 4.2 - 5.9 / 3.9 - 5.3 cm LV Systolic Diameter PLAX 4.2 cm IVS Diastolic Thickness 1.7 cm 0.6 - 1.0 / 0.6 - 0.9 cm LVPW Diastolic Thickness 0.9 cm 0.6 - 1.0 / 0.6 - 0.9 cm LV Relative Wall Thickness 0.6 RV Internal Dim ED PLAX 3.2 cm LVOT Diameter 2.8 cm M-MODE Aortic Root Diameter MM 3.6 cm LA Systolic Diameter MM 4.0 cm LA Ao Ratio MM 1.1 DOPPLER AV Peak Velocity 195.0 cm/s AV Peak Gradient 15.2 mmHg AV Mean Gradient 8.5 mmHg AV Velocity Time Integral 34.0 cm LVOT Peak Velocity 52.6 cm/s LVOT Peak Gradient 1.1 mmHg LVOT Velocity Time Integral 9.3 cm AV Area Cont Eq vti 1.7 cm AV Area Cont Eq pk 1.7 cm MV Area PHT 2.1 cm TR Peak Velocity 339.0 cm/s TR Peak Gradient 46.0 mmHg FINDINGS LEFT VENTRICLE There is global left ventricular dysfunction. Normal left ventricular size. The left ventricular systolic function is severely reduced with an estimated ejection fraction in th e range of 20-25%. RIGHT VENTRICLE Normal right ventricular size and systolic function. LEFT ATRIUM The left atrial size is normal. RIGHT ATRIUM The right atrial size is normal. ATRIAL SEPTUM Normal atrial septal thickness without atrial level shunting by limited color doppler interrogation. AORTA The aortic root and proximal ascending aorta are normal in size on limited imaging. MITRAL VALVE Trace mitral valve regurgitation. Normally functioning mitral valve bioprosthesis. MVA 2.1 AORTIC VALVE No aortic valve regurgitation. The aortic valve prosthesis is normal to two-dimensional, color flow and Doppler interrogation. Max gradient 15 mean 9 TREVON 1.0 TRICUSPID VALVE Structurally normal tricuspid valve. There is mild tricuspid valve regurgitation. There is estimated moderate pulmonary hypertension present (range 50-60 mmHg). PULMONARY VALVE No pulmonary valve regurgitation or stenosis. VESSELS IVC 1.7 PERICARDIUM No pericardial effusion. Marcell Canchola MD (Electronically Signed) Final Date:27 September 2016 17:17
[2016-09-27] MEDS: ACETAMINOPHEN/HYDROcodone 325 MG/10 MG TAB PO PRN (18:50)
[2016-09-27] MEDS: EZETIMIBE 10 MG TAB PO SCH (21:13)
[2016-09-27] MEDS: PRAVASTATIN SOD 40 MG TAB PO SCH (21:13)
[2016-09-28] VITALS (25 sets, daily range): BP systolic 89–127; BP diastolic 55–78; PULSE 64–118; RESP 18–20; TEMP 97.9–98.4; O2SAT 97–100
[2016-09-28] MEDS: ACETAMINOPHEN/HYDROcodone 325 MG/10 MG TAB PO PRN (04:37)
[2016-09-28] MEDS: ceFAZolin 2 GM PREMIX 50 ML IV SCH ×3 (04:37→21:21)
[2016-09-28] MEDS: ZINC SULFATE 220 MG CAP PO SCH ×2 (09:00→11:20)
[2016-09-28] MEDS: VALSARTAN 160 MG TAB PO SCH (09:00)
[2016-09-28] MEDS: METOPROLOL TARTRATE 50 MG TAB PO SCH ×3 (09:00→21:00)
[2016-09-28] MEDS: FUROSEMIDE 20 MG/2 ML VIAL IV PUSH SCH (09:00)
[2016-09-28] MEDS: LEVOFLOXACIN 500 MG TAB PO SCH (09:14)
[2016-09-28] MEDS: DOCUSATE SODIUM 50 MG/SENNA 8.6 MG TAB PO SCH ×2 (09:14→21:20)
[2016-09-28] MEDS: SODIUM CHLORIDE 0.9% FLUSH 10 ML FLUSH IV FLUSH SCH ×2 (09:15→21:21)
[2016-09-28] MEDS: BETAMETHASONE/CLOTRIMAZOLE CREAM 15 GM TOPICAL SCH ×2 (09:20→21:21)
[2016-09-28] MEDS: POTASSIUM CHLOR 10 MEQ PREMIX 100 ML IV SCH ×3 (11:15→12:16)
[2016-09-28 11:52] LABS: HEMATOCRIT 26.9 % (39.0-51.0); MEAN CELL VOLUME 87.8 FL (80.0-100.0); MEAN CORPUSCULAR HEMOGLOBIN 29.7 PG (27.0-34.0); MEAN CORPUSCULAR HGB CONC 33.9 % (32.0-36.0); PLATELET COUNT 139 TH/MM3 (150-450); RED BLOOD COUNT 3.06 MIL/MM3 (4.50-5.90); RED CELL DISTRIBUTION WIDTH 17.8 % (11.6-17.2); REVIEW FLAG FINAL; WHITE BLOOD COUNT 7.5 TH/MM3 (4.0-11.0)
[2016-09-28 11:59] LABS: INTERNATIONAL NORMALIZED RATIO 1.7 RATIO; PROTHROMBIN TIME - PATIENT 19.7 SEC (9.8-11.6)
[2016-09-28 12:14] LABS: BICARBONATE 32.3 MEQ/L (21.0-32.0); POTASSIUM 3.7 MEQ/L (3.5-5.1)
[2016-09-28] MEDS ORDERED: WARFARIN SOD 5 MG TAB PO ONE (17:15)
--- NOTE | 2016-09-28 17:18 | HHI.PR ---
Subjective Remarks hungry , ate and drank ensure well no pain complains telemetry- a fib rhythm Objective Vitals Vital Signs Date Time Temp Pulse Resp B/P Pulse Ox O2 Delivery O2 Flow Rate FiO2 09/28/16 15:00 Nasal Cannula 2.00 09/28/16 11:00 Nasal Cannula 2.00 09/28/16 09:00 98.3 99 18 89/55 98 09/28/16 09:00 Nasal Cannula 2.00 09/28/16 06:00 64 09/28/16 05:37 20 09/28/16 05:00 96 09/28/16 04:00 108 09/28/16 04:00 Nasal Cannula 2.00 09/28/16 04:00 98.2 79 18 127/78 100 09/28/16 03:00 100 09/28/16 02:00 80 09/28/16 01:00 78 09/28/16 00:00 98.4 84 18 109/64 99 09/28/16 00:00 75 09/28/16 00:00 Nasal Cannula 3.00 09/27/16 23:00 76 09/27/16 22:00 82 09/27/16 21:00 82 09/27/16 20:00 98.5 85 20 109/65 100 09/27/16 20:00 Nasal Cannula 3.00 09/27/16 20:00 80 09/27/16 19:00 78 I/O 09/27/16 09/27/16 09/27/16 09/28/16 09/28/16 09/28/16 07:00 15:00 23:00 07:00 15:00 23:00 Intake Total 340 ml 150 ml 300 ml Output Total 1500 ml Balance -1160 ml 150 ml 300 ml Intake Oral 240 ml 200 ml IV Total 100 ml 150 ml 100 ml Output Urine Total 1500 ml # Voids 4 # Bowel Movements 0 0 Result Diagram: 09/28/16 1131 09/28/16 1131 Imaging Last Impressions Chest X-Ray 09/26/16 0000 Signed Impressions: Service Date/Time: Monday, September 26, 2016 08:43 - CONCLUSION: 1. Interval worsening, patchy infiltrates bilaterally consistent with worsening pulmonary edema versus pneumonia. Clinical correlation is recommended. 2. Cardiomegaly. Marty Givens MD Objective Remarks anicteric, NAD no JVD lungs decrease breath sounds, decrease breath sounds, no rales or wheezes Irregularly irregular rhythm- 80s abdomen soft, nontender extremities no edema , dressing intact neuro exam- unremarkable A/P Problem List: (1) Anemia ICD Code: D64.9 Status: Acute (2) Elevated troponin ICD Code: R74.8 Status: Acute (3) A-fib ICD Code: I48.91 Status: Acute (4) UTI (urinary tract infection) ICD Code: N39.0 Status: Acute (5) Osteomyelitis ICD Code: M86.9 Status: Acute Assessment and Plan 86-year-old male with Anemia: Critical Anemia - S/P BT 09/24- - H and H improved - Keep Hgb > 8.0. . . - Has had some issues with anemia. Patient is status post PRBC transfusion. H& H stable. Continue to monitor. No signs of active bleeding. Rectal exam neg in the ed - cleared by Hematology - started on coumadin anticoagulation- A fib paroxysmal- in a fibrhythm rate 90s- low 100s History of AVR- bovine. CHF i remission - restarted coumadin 09/27- dose for 5 mg today - continue on ARB -02 2 LNC UTI: -with Pseudomonas -started on po levaquin 500 mg po daily 09/26- ff final c and S Osteomyelitis: hip currently receiving IV Cefazolin 2gm IV q8h via Left PICC- present at time of admission. - PT ongoing- pivot DVT Prophylaxis: on coumadin - Lovenox if INR subtherapeutic Problem Qualifiers (1) Anemia: Qualified Code: D64.9 - Anemia, unspecified type Nancy Valdez MD Sep 28, 2016 17:18
--- NOTE | 2016-09-28 18:24 | PD.CARD.PN ---
Subjective Subjective Remarks NO CP has UTI hr still up may increase metoprolol or add oral cardizem Objective Medications Administered Medications Medications (Trade) Dose Ordered Sig/Markell Route PRN Reason Start Time Stop Time Status Last Admin Dose Admin Sodium Chloride (NS Flush) 2 ml BID IV FLUSH 09/21/16 09:00 09/28/16 09:15 Ondansetron HCl (Zofran Inj) 4 mg Q6H PRN IVP NAUSEA OR VOMITING 09/21/16 02:15 09/21/16 17:15 Acetaminophen/ Hydrocodone Bitart ([place] 5-325 Mg) 1 tab Q4H PRN PO PAIN SCALE 3 TO 5 09/21/16 02:15 09/24/16 00:57 Acetaminophen/ Hydrocodone Bitart ([place] 10-325 Mg) 1 tab Q4H PRN PO PAIN SCALE 6 TO 10 09/21/16 02:15 09/28/16 04:37 Senna/Docusate Sodium (Radha-Colace) 1 tab BID PO 09/21/16 09:00 09/28/16 09:14 Magnesium Hydroxide (Milk Of Magnesia Liq) 30 ml Q12H PRN PO MILD - MODERATE CONSTIPATION 09/21/16 02:15 09/25/16 09:53 Lactulose (Lactulose Liq) 30 ml DAILY PRN PO SEVERE CONSITIPATION 09/21/16 02:15 09/25/16 05:56 Betamethasone/ Clotrimazole (Lotrisone Cream) 1 applic BID TOPICAL 09/21/16 09:00 09/28/16 09:20 EZETIMIBE (Zetia) 10 mg HS PO 09/21/16 21:00 09/27/16 21:13 Pravastatin Sodium 40 mg 40 mg HS PO 09/21/16 21:00 09/27/16 21:13 Cefazolin Sodium/ Dextrose 50 ml @ 100 mls/hr Q8H IV 09/21/16 06:00 09/28/16 15:16 Diltiazem HCl/ Sodium Chloride (Cardizem Inj/NS Inj) 125 ml @ 0 mls/hr TITRATE IV 09/26/16 08:30 09/26/16 09:17 Levofloxacin (Levaquin) 500 mg DAILY PO 09/26/16 19:00 09/28/16 09:14 Metoprolol Tartrate (Lopressor) 50 mg BID PO 09/27/16 21:00 09/28/16 15:29 Zinc Sulfate (Zinc Sulfate) 220 mg DAILY@1100 PO 09/28/16 11:00 09/28/16 11:20 Vital Signs / I&O Vital Signs Date Time Temp Pulse Resp B/P Pulse Ox O2 Delivery O2 Flow Rate FiO2 09/28/16 18:00 102 09/28/16 17:00 96 09/28/16 16:00 117 09/28/16 15:29 98.0 115 18 115/74 100 09/28/16 15:00 Nasal Cannula 2.00 09/28/16 15:00 104 09/28/16 14:00 110 09/28/16 13:00 106 09/28/16 12:00 97.9 116 18 109/73 100 09/28/16 12:00 106 09/28/16 11:00 98 09/28/16 11:00 Nasal Cannula 2.00 09/28/16 10:00 102 09/28/16 09:00 98.3 99 18 89/55 98 09/28/16 09:00 102 09/28/16 09:00 Nasal Cannula 2.00 09/28/16 08:00 106 09/28/16 07:00 118 09/28/16 06:00 64 09/28/16 05:37 20 09/28/16 05:00 96 09/28/16 04:00 108 09/28/16 04:00 Nasal Cannula 2.00 09/28/16 04:00 98.2 79 18 127/78 100 09/28/16 03:00 100 09/28/16 02:00 80 09/28/16 01:00 78 09/28/16 00:00 98.4 84 18 109/64 99 09/28/16 00:00 75 09/28/16 00:00 Nasal Cannula 3.00 09/27/16 23:00 76 09/27/16 22:00 82 09/27/16 21:00 82 09/27/16 20:00 98.5 85 20 109/65 100 09/27/16 20:00 Nasal Cannula 3.00 09/27/16 20:00 80 09/27/16 19:00 78 I/O 6/15/17 6/15/09/27/16 09/28/16 09/28/16 09/28/16 07:00 15:00 23:00 07:00 15:00 23:00 Intake Total 340 ml 150 ml 300 ml 340 ml Output Total 1500 ml Balance -1160 ml 150 ml 300 ml 340 ml Intake Oral 240 ml 200 ml 240 ml IV Total 100 ml 150 ml 100 ml 100 ml Output Urine Total 1500 ml # Voids 4 3 # Bowel Movements 0 0 0 Physical Exam GENERAL: Thin elderly man SKIN: Warm and dry. NECK: JVD normal - less than or equal to 5 cm H20. CARDIOVASCULAR: Regular rate and rhythm without murmurs, gallops or rubs. RESPIRATORY: Normal breath sounds - equal bilaterally. No accessory muscle use. No wheezes, rales or rubs. PERIPHERY: No cyanosis or edema. Laboratory Laboratory Tests Test 09/28/16 11:31 White Blood Count 7.5 TH/MM3 Red Blood Count 3.06 MIL/MM3 Hemoglobin 9.1 GM/DL Hematocrit 26.9 % Mean Corpuscular Volume 87.8 FL Mean Corpuscular Hemoglobin 29.7 PG Mean Corpuscular Hemoglobin 33.9 % Concent Red Cell Distribution Width 17.8 % Platelet Count 139 TH/MM3 Mean Platelet Volume 7.5 FL Prothrombin Time 19.7 SEC Prothromb Time International 1.7 RATIO Ratio Sodium Level 138 MEQ/L Potassium Level 3.7 MEQ/L Chloride Level 97 MEQ/L Carbon Dioxide Level 32.3 MEQ/L Anion Gap 9 MEQ/L Blood Urea Nitrogen 21 MG/DL Creatinine 0.79 MG/DL Estimat Glomerular Filtration 93 ML/MIN Rate Random Glucose 118 MG/DL Calcium Level 8.1 MG/DL Assessment and Plan Assessment and Plan Add cardizem PO if hr still up , on beta mary ellen with fair control Umang Allison MD Sep 28, 2016 18:24
[2016-09-28] MEDS: EZETIMIBE 10 MG TAB PO SCH (21:20)
[2016-09-28] MEDS: PRAVASTATIN SOD 40 MG TAB PO SCH (21:20)
[2016-09-29] VITALS (24 sets, daily range): BP systolic 92–120; BP diastolic 53–67; PULSE 88–120; RESP 16–18; TEMP 98–98.5; O2SAT 92–99
[2016-09-29] MEDS: METOPROLOL TARTRATE 50 MG TAB PO SCH ×3 (01:06→21:04)
[2016-09-29] MEDS: ceFAZolin 2 GM PREMIX 50 ML IV SCH ×3 (06:13→21:03)
[2016-09-29] MEDS: VALSARTAN 80 MG TAB PO SCH (08:30)
[2016-09-29] MEDS: DOCUSATE SODIUM 50 MG/SENNA 8.6 MG TAB PO SCH ×2 (08:31→21:03)
[2016-09-29] MEDS: SODIUM CHLORIDE 0.9% FLUSH 10 ML FLUSH IV FLUSH SCH ×2 (08:31→21:05)
[2016-09-29] MEDS: LEVOFLOXACIN 500 MG TAB PO SCH (08:31)
[2016-09-29] MEDS: BETAMETHASONE/CLOTRIMAZOLE CREAM 15 GM TOPICAL SCH ×2 (08:32→21:05)
--- NOTE | 2016-09-29 09:49 | HHI.PR ---
Subjective Remarks patient up on chair good po, had a good BM= disimpacted no pain complains had recent surgery for right hip- came from a SNF Objective Vitals Vital Signs Date Time Temp Pulse Resp B/P Pulse Ox O2 Delivery O2 Flow Rate FiO2 09/29/16 09:00 99 09/29/16 08:00 97 09/29/16 07:00 112 09/29/16 07:00 92 Nasal Cannula 3.00 09/29/16 07:00 98.4 106 18 104/63 92 09/29/16 06:00 102 09/29/16 05:00 102 09/29/16 04:00 92 09/29/16 04:00 98.0 92 18 102/65 98 09/29/16 03:00 92 09/29/16 03:00 96 Nasal Cannula 2.00 09/29/16 02:00 92 09/29/16 01:00 102 09/29/16 00:00 110 09/29/16 00:00 98.3 110 16 96/66 99 09/28/16 23:00 116 09/28/16 23:00 94 Nasal Cannula 2.00 09/28/16 22:00 102 09/28/16 21:00 102 09/28/16 20:00 104 09/28/16 20:00 98.3 109 20 111/70 97 09/28/16 20:00 97 Nasal Cannula 2.00 09/28/16 19:00 102 09/28/16 18:00 102 09/28/16 17:00 96 09/28/16 16:00 117 09/28/16 15:29 98.0 115 18 115/74 100 09/28/16 15:00 Nasal Cannula 2.00 09/28/16 15:00 104 09/28/16 14:00 110 09/28/16 13:00 106 09/28/16 12:00 97.9 116 18 109/73 100 09/28/16 12:00 106 09/28/16 11:00 98 09/28/16 11:00 Nasal Cannula 2.00 09/28/16 10:00 102 I/O 09/28/16 09/28/16 09/28/16 09/29/16 09/29/16 09/29/16 07:00 15:00 23:00 07:00 15:00 23:00 Intake Total 300 ml 340 ml 530 ml Balance 300 ml 340 ml 530 ml Intake Oral 200 ml 240 ml 480 ml IV Total 100 ml 100 ml 50 ml # Voids 4 3 5 # Bowel Movements 0 0 0 Result Diagram: 09/28/16 1131 09/28/16 1131 Imaging Last Impressions Chest X-Ray 09/26/16 0000 Signed Impressions: Service Date/Time: Monday, September 26, 2016 08:43 - CONCLUSION: 1. Interval worsening, patchy infiltrates bilaterally consistent with worsening pulmonary edema versus pneumonia. Clinical correlation is recommended. 2. Cardiomegaly. Marty Givens MD Objective Remarks anicteric, NAD no JVD lungs decrease breath sounds, decrease breath sounds, no rales or wheezes Irregularly irregular rhythm- 80s abdomen soft, nontender extremities no edema , no calf swelling neuro exam- unremarkable A/P Problem List: (1) Anemia ICD Code: D64.9 Status: Acute (2) Elevated troponin ICD Code: R74.8 Status: Acute (3) A-fib ICD Code: I48.91 Status: Acute (4) UTI (urinary tract infection) ICD Code: N39.0 Status: Acute (5) Osteomyelitis ICD Code: M86.9 Status: Acute Assessment and Plan 86-year-old male with Anemia: Critical Anemia - S/P BT 09/24- - H and H improved - Keep Hgb > 8.0. . . - Has had some issues with anemia. Patient is status post PRBC transfusion. H& H stable. Continue to monitor. No signs of active bleeding. 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 ff INR - continue on ARB, BB -02 2 LNC UTI: -with Pseudomonas- persistent pyuria -started on po levaquin 500 mg po daily 09/26- ff final c and S -recheck UA today - no urinary complains Osteomyelitis: hip currently receiving IV Cefazolin 2gm IV q8h via Left PICC- present at time of admission. S/P recent hip surgery - PT ongoing- pivot DVT Prophylaxis: on coumadin - Lovenox if INR subtherapeutic Problem Qualifiers (1) Anemia: Qualified Code: D64.9 - Anemia, unspecified type Nancy Valdez MD Sep 29, 2016 09:49
[2016-09-29] MEDS: ZINC SULFATE 220 MG CAP PO SCH (11:02)
[2016-09-29 12:44] LABS: BACTERIA, URINE FEW /hpf; BLOOD, URINE SMALL (NEG); COMMENT (UR) CATH-CULTURE IND; CULTURE IF INDICATED CATH CULTURE IND; GLUCOSE,URINE NEG (NEG); HYALINE CAST, URINE 1 /lpf (RARE); KETONE, URINE NEG (NEG); MUCUS URINE FEW /lpf (OCC); NITRITE,URINE NEG (NEG); SQUAMOUS EPITHELIAL CELL URINE 2 /hpf (0-5); URINE COLOR DARK-YELLOW (YELLW/STRAW)
[2016-09-29 13:50] LABS: INTERNATIONAL NORMALIZED RATIO 1.9 RATIO; PROTHROMBIN TIME - PATIENT 21.6 SEC (9.8-11.6)
[2016-09-29] MEDS ORDERED: WARFARIN SOD 2 MG TAB PO ONE (19:00)
[2016-09-29] MEDS ORDERED: WARFARIN SOD 5 MG TAB PO ONE (19:00)
[2016-09-29] MEDS: EZETIMIBE 10 MG TAB PO SCH (21:00)
[2016-09-29] MEDS: PRAVASTATIN SOD 40 MG TAB PO SCH (21:04)
[2016-09-30] VITALS (26 sets, daily range): BP systolic 87–114; BP diastolic 45–66; PULSE 80–119; RESP 12–20; TEMP 97.7–99.2; O2SAT 95–99
[2016-09-30] MEDS: ceFAZolin 2 GM PREMIX 50 ML IV SCH ×3 (06:12→21:04)
[2016-09-30] MEDS: SODIUM CHLORIDE 0.9% FLUSH 10 ML FLUSH IV FLUSH SCH ×2 (09:05→20:59)
[2016-09-30] MEDS: DOCUSATE SODIUM 50 MG/SENNA 8.6 MG TAB PO SCH ×2 (09:05→21:03)
[2016-09-30] MEDS: VALSARTAN 80 MG TAB PO SCH (09:05)
[2016-09-30] MEDS: LEVOFLOXACIN 500 MG TAB PO SCH (09:05)
[2016-09-30] MEDS: METOPROLOL TARTRATE 50 MG TAB PO SCH ×2 (09:06→21:03)
[2016-09-30] MEDS: BETAMETHASONE/CLOTRIMAZOLE CREAM 15 GM TOPICAL SCH ×2 (09:06→21:04)
[2016-09-30] MEDS: ZINC SULFATE 220 MG CAP PO SCH (10:42)
--- NOTE | 2016-09-30 13:04 | HHI.PR ---
Subjective Remarks heart rate - a fib rate variable 90s- loww 106 denies any pain Objective Vitals Vital Signs Date Time Temp Pulse Resp B/P Pulse Ox O2 Delivery O2 Flow Rate FiO2 09/30/16 12:00 103 09/30/16 11:00 95 Room Air 09/30/16 11:00 98.0 109 20 92/57 98 09/30/16 11:00 110 09/30/16 10:00 100 09/30/16 09:00 103 09/30/16 08:00 119 09/30/16 07:00 95 Room Air 09/30/16 07:00 96 09/30/16 07:00 97.7 105 18 100/63 95 09/30/16 06:17 100/63 09/30/16 06:00 94 09/30/16 05:38 104/64 09/30/16 05:00 96 09/30/16 04:00 98.0 98 14 112/66 97 09/30/16 04:00 93 09/30/16 03:00 100 09/30/16 03:00 93 Nasal Cannula 3.00 09/30/16 02:00 98.1 99 12 87/60 96 09/30/16 02:00 100 09/30/16 01:00 98 09/30/16 00:00 88 09/29/16 23:00 94 Nasal Cannula 3.00 09/29/16 23:00 96 09/29/16 22:00 92 09/29/16 21:00 118 09/29/16 20:00 95 Nasal Cannula 3.00 09/29/16 20:00 120 09/29/16 20:00 98.5 119 18 120/62 97 09/29/16 19:00 111 09/29/16 18:00 116 09/29/16 17:00 103 09/29/16 16:00 98 09/29/16 15:00 116 09/29/16 15:00 99 Nasal Cannula 3.00 09/29/16 15:00 98.2 107 18 104/53 99 09/29/16 14:00 103 09/29/16 13:00 109 I/O 09/29/16 09/29/16 09/29/16 09/30/16 09/30/16 09/30/16 07:00 15:00 23:00 07:00 15:00 23:00 Intake Total 530 ml 720 ml 315 ml Balance 530 ml 720 ml 315 ml Intake Oral 480 ml 720 ml 240 ml IV Total 50 ml 75 ml # Voids 5 3 2 # Bowel Movements 0 1 1 Result Diagram: 09/28/16 1131 09/28/16 1131 Imaging Last Impressions Chest X-Ray 09/26/16 0000 Signed Impressions: Service Date/Time: Monday, September 26, 2016 08:43 - CONCLUSION: 1. Interval worsening, patchy infiltrates bilaterally consistent with worsening pulmonary edema versus pneumonia. Clinical correlation is recommended. 2. Cardiomegaly. Marty Givens MD Objective Remarks anicteric, NAD no JVD lungs decrease breath sounds, decrease breath sounds, no rales or wheezes Irregularly irregular rhythm- l03 abdomen soft, nontender extremities no edema , dressing intact neuro exam- unremarkable Side: Left Reason for Continuation brachial vein- present on admission A/P Problem List: (1) Anemia ICD Code: D64.9 Status: Acute (2) Elevated troponin ICD Code: R74.8 Status: Acute (3) A-fib ICD Code: I48.91 Status: Acute (4) UTI (urinary tract infection) ICD Code: N39.0 Status: Acute (5) Osteomyelitis ICD Code: M86.9 Status: Acute Assessment and Plan 86-year-old male with Anemia: Critical Anemia - S/P BT 09/24- - H and H improved - Keep Hgb > 8.0. . . - Has had some issues with anemia. Patient is status post PRBC transfusion. H& H stable. Continue to monitor. No signs of active bleeding. Rectal exam neg in the ed - cleared by Hematology - started on coumadin anticoagulation- ff INR, CBC A fib paroxysmal- in a fib rhythm variable History of AVR- bovine CHF remission - restarted coumadin . ff INR - On Losartan 240 mg daily- will decrease to 160 mg daily with addition of CCB for better HR control. - Lopressor 50 mg po bid. - Add Cardizem 30 mg po q6 for additional rate control - 02 2 LNC Persistent Pyuria - WBC decreasing Pseudomonas UTI, VRE - 09/26. now growing Reba- 09/29- less than 10,000 cfu -started on po levaquin 500 mg po daily 09/26 - no urinary complains - ID consult for recommendation Osteomyelitis: hip - currently on IV Cefazolin 2gm IV q8h via Left PICC-present at time of admission. S/P recent hip surgery - PT ongoing- pivot DVT Prophylaxis: on coumadin - Lovenox if INR subtherapeutic Problem Qualifiers (1) Anemia: Qualified Code: D64.9 - Anemia, unspecified type Nancy Valdez MD Sep 30, 2016 13:04 Nancy Valdez MD Sep 30, 2016 13:04
[2016-09-30] MEDS: DILTIAZEM HCL 30 MG TAB PO SCH ×2 (13:47→17:41)
[2016-09-30 19:00] LABS: INTERNATIONAL NORMALIZED RATIO 2.6 RATIO; PROTHROMBIN TIME - PATIENT 29.8 SEC (9.8-11.6)
[2016-09-30] MEDS: WARFARIN SOD 5 MG TAB PO SCH (20:57)
[2016-09-30] MEDS: EZETIMIBE 10 MG TAB PO SCH (21:00)
[2016-09-30] MEDS: PRAVASTATIN SOD 40 MG TAB PO SCH (21:03)
[2016-10-01] VITALS (20 sets, daily range): BP systolic 88–122; BP diastolic 51–76; PULSE 51–95; RESP 18–20; TEMP 97.1–98.4; O2SAT 92–98
[2016-10-01] MEDS: DILTIAZEM HCL 30 MG TAB PO SCH ×4 (00:49→17:42)
[2016-10-01] MEDS: ceFAZolin 2 GM PREMIX 50 ML IV SCH ×3 (05:02→22:36)
[2016-10-01 06:22] LABS: BICARBONATE 32.3 MEQ/L (21.0-32.0); POTASSIUM 3.6 MEQ/L (3.5-5.1)
[2016-10-01 07:02] LABS: HEMATOCRIT 26.7 % (39.0-51.0); MEAN CELL VOLUME 86.7 FL (80.0-100.0); MEAN CORPUSCULAR HEMOGLOBIN 28.4 PG (27.0-34.0); MEAN CORPUSCULAR HGB CONC 32.8 % (32.0-36.0); PLATELET COUNT 105 TH/MM3 (150-450); RED BLOOD COUNT 3.09 MIL/MM3 (4.50-5.90); RED CELL DISTRIBUTION WIDTH 17.3 % (11.6-17.2); WHITE BLOOD COUNT 8.4 TH/MM3 (4.0-11.0)
[2016-10-01 07:22] LABS: INTERNATIONAL NORMALIZED RATIO 2.7 RATIO; PROTHROMBIN TIME - PATIENT 31.7 SEC (9.8-11.6)
[2016-10-01 07:47] LABS: REVIEW FLAG AUTO DIFF
[2016-10-01] MEDS: DOCUSATE SODIUM 50 MG/SENNA 8.6 MG TAB PO SCH ×2 (08:41→22:37)
[2016-10-01] MEDS: LEVOFLOXACIN 500 MG TAB PO SCH (08:41)
[2016-10-01] MEDS: BETAMETHASONE/CLOTRIMAZOLE CREAM 15 GM TOPICAL SCH ×2 (08:41→21:00)
[2016-10-01] MEDS: SODIUM CHLORIDE 0.9% FLUSH 10 ML FLUSH IV FLUSH SCH ×2 (08:42→22:36)
[2016-10-01] MEDS: METOPROLOL TARTRATE 50 MG TAB PO SCH ×2 (08:42→20:43)
[2016-10-01] MEDS: VALSARTAN 80 MG TAB PO SCH (09:00)
[2016-10-01] MEDS: ZINC SULFATE 220 MG CAP PO SCH (11:52)
--- NOTE | 2016-10-01 12:38 | HHI.PR ---
Subjective Remarks Patient denies cp/sob patient's blood pressure low today denies fevers/chills denies cough Objective Vitals Vital Signs Date Time Temp Pulse Resp B/P Pulse Ox O2 Delivery O2 Flow Rate FiO2 10/01/16 11:09 75 10/01/16 10:00 84 10/01/16 09:00 88 10/01/16 08:15 98.2 78 18 88/60 93 10/01/16 08:15 93 Nasal Cannula 2.00 10/01/16 08:00 92 10/01/16 07:01 80 10/01/16 06:00 66 10/01/16 05:00 67 10/01/16 04:00 98 Nasal Cannula 2.00 10/01/16 04:00 97.9 51 18 97/51 97 10/01/16 04:00 77 10/01/16 03:00 71 10/01/16 02:00 86 10/01/16 01:00 87 10/01/16 00:00 98.1 95 18 122/70 98 10/01/16 00:00 98 Nasal Cannula 2.00 10/01/16 00:00 92 09/30/16 23:00 80 09/30/16 22:00 92 09/30/16 21:00 92 09/30/16 20:00 96 Nasal Cannula 2.00 09/30/16 20:00 99.2 98 18 107/63 96 09/30/16 20:00 99 09/30/16 19:00 96 09/30/16 18:00 105 09/30/16 17:00 105 09/30/16 16:00 105 09/30/16 15:00 94 09/30/16 15:00 98.1 107 18 114/45 99 09/30/16 15:00 95 Room Air 09/30/16 14:00 98 09/30/16 13:00 103 09/30/16 12:00 103 I/O 09/30/16 09/30/16 09/30/16 10/01/16 10/01/16 10/01/16 07:00 15:00 23:00 07:00 15:00 23:00 Intake Total 315 ml 1080 ml 580 ml Output Total 325 ml Balance 315 ml 1080 ml 255 ml Intake Oral 240 ml 1080 ml 480 ml IV Total 75 ml 100 ml Output Urine Total 325 ml # Voids 2 4 # Bowel Movements 1 0 Result Diagram: 10/01/16 0645 10/01/16 0510 Imaging Last Impressions Chest X-Ray 09/26/16 0000 Signed Impressions: Service Date/Time: Monday, September 26, 2016 08:43 - CONCLUSION: 1. Interval worsening, patchy infiltrates bilaterally consistent with worsening pulmonary edema versus pneumonia. Clinical correlation is recommended. 2. Cardiomegaly. Marty Givens MD Objective Remarks GENERAL: Very thin patient. SKIN: Warm and dry. HEAD: Normocephalic. EYES: No scleral icterus. No injection or drainage. Pale conjunctiva. NECK: Supple, trachea midline. No JVD or lymphadenopathy. CARDIOVASCULAR: Irregularly irregular rhythm without murmur rubs or gallops. RESPIRATORY: There are auscultated crackles in the left lower lung field. No rhonchi or wheezing auscultated. GASTROINTESTINAL: Abdomen soft, non-tender, nondistended. EXTREMITIES: No cyanosis, or edema. NEUROLOGICAL: Awake, alert, and oriented x 3. Non-focal. Procedures None Medications and IVs Current Medications Medications (Trade) Dose Ordered Sig/Markell Route Start Time Stop Time Status Last Admin (NS Flush) 2 ml UNSCH PRN IV FLUSH 09/21/16 02:15 (NS Flush) 2 ml BID IV FLUSH 09/21/16 09:00 10/01/16 08:42 (Zofran Inj) 4 mg Q6H PRN IVP 09/21/16 02:15 09/21/16 17:15 (Tylenol) 650 mg Q6H PRN PO 09/21/16 02:15 (Hurst 5-325 Mg) 1 tab Q4H PRN PO 09/21/16 02:15 09/24/16 00:57 (Hurst 10-325 Mg) 1 tab Q4H PRN PO 09/21/16 02:15 09/28/16 04:37 (Radha-Colace) 1 tab BID PO 09/21/16 09:00 10/01/16 08:41 (Milk Of Magnesia Liq) 30 ml Q12H PRN PO 09/21/16 02:15 09/25/16 09:53 (Senokot) 17.2 mg Q12H PRN PO 09/21/16 02:15 (Dulcolax Supp) 10 mg DAILY PRN RECTAL 09/21/16 02:15 09/29/16 08:31 (Lactulose Liq) 30 ml DAILY PRN PO 09/21/16 02:15 09/25/16 05:56 (Lotrisone Cream) 1 applic BID TOPICAL 09/21/16 09:00 10/01/16 08:41 (Zetia) 10 mg HS PO 09/21/16 21:00 09/30/16 21:00 Pravastatin Sodium 40 mg 40 mg HS PO 09/21/16 21:00 09/30/16 21:03 (Ancef 2 Gm Premix) 50 ml @ 100 mls/hr Q8H IV 09/21/16 06:00 10/01/16 05:02 (Levaquin) 500 mg DAILY PO 09/26/16 19:00 10/01/16 08:41 (Lopressor) 50 mg BID PO 09/27/16 21:00 10/01/16 08:42 (Zinc Sulfate) 220 mg DAILY@1100 PO 09/28/16 11:00 09/30/16 10:42 (Cardizem) 30 mg Q6HR PO 09/30/16 13:15 10/01/16 05:01 (Diovan) 160 mg DAILY PO 10/01/16 09:00 (Coumadin) 5 mg DAILY@16 PO 09/30/16 19:58 09/30/16 20:57 Urinary Catheter: No Vascular Central Line Catheter: No Side: Left A/P Problem List: (1) Hypotension ICD Code: I95.9 Status: Acute Plan: Bp down to the high 80's systolic. Decrease dose of valsartan. I will give a small bolus of 250 cc of IV normal saline. If persistent hypotension will decrease metoprolol dose. If Bp not treated patient is at great risk of cardiovascular collapse. Will place holding parameters (2) Normocytic normochromic anemia ICD Code: D64.9 Status: Acute Plan: History 6-year-old male who presented to [place] after he was sent because of normal lab values which showed hemoglobin of 6.3. Patient status post PRBC transfusion of 2 units in the emergency department with improvement of hemoglobin. No signs of active bleeding. Hemoccult negative. Hematology was consulted - likely anemia of chronic disease as seen in osteomyelitis. Initially anticoagulation was held due to severe anemia, hematology gave the okay for anticoagulation to be resumed. Hemoglobin stable. Continue to monitor H&H. Transfuse for hemoglobin less than 8. (3) A-fib ICD Code: I48.91 Status: Chronic Plan: Patient has history of aVR - bovine Rate controlled. Cardiology consulted. Patient currently on metoprolol 50 mg by mouth twice a day. Patient hypotensive , we'll continue us blood pressure allows. Decrease valsartan dose. If patient still hypotensive then will considering decreasing uncertain to the minimal dose and perhaps metoprolol will need to be decreased to 25 mg by mouth twice a day. (4) UTI (urinary tract infection) ICD Code: N39.0 Status: Acute Plan: Patient has a UTI with urine cultures positive for enterococcus Faecium Vre and pseudomonas aeruginosa, on 09/26. Repeat catheterized urine culture grew Reba Albicans < 10,000 cfu and group D enterococcus. Patient is currently on oral levofloxacin, IV cefazolin. Continue IV cefazolin for osteomyelitis, continue oral Levaquin. 50 cc has been consulted, recommendations are pending. (5) Osteomyelitis ICD Code: M86.9 Status: Acute Plan: Stay myelitis of the hip present on admission. Currently on IV cefazolin 2 g IV every 8 hours via left PICC. Status post recent hip surgery. Patient on: - pivot (6) Demand ischemia ICD Code: I24.8 Status: Acute Plan: Patient had elevated troponins however no chest pains. Seen by cardiology. Thought to be secondary to demand ischemia. Echo cardiac showed the left ventricular systolic function severely reduced with an estimated ejection fraction the range of 20-25%. Trace mitral valve regurgitation, normally functioning mitral valve bioprosthesis. Normal aortic valve prosthesis. There is estimated moderate pulmonary hypertension with pulmonary pressure in the range of 50-60 mmHg. (7) Chronic systolic (congestive) heart failure ICD Code: I50.22 Status: Chronic Plan: Echocardiogram as described above shows an EF of 20-25%. No previous echocardiogram to compare with. Follow-up cardiology recommendations. (8) Hypokalemia ICD Code: E87.6 Status: Resolved Plan: Potassium levels low on 09/27 at 3.2. Replaced orally and levels now normal. continue to monitor BMP. (9) Hospital acquired PNA ICD Code: J18.9 Status: Acute Plan: Consent for hospital-acquired pneumonia. Patient has bilateral patchy infiltrates on previous chest x-rays. Now there is crackles on left lower lung exam. I will switch to IV Levaquin and give 1 dose of IV vancomycin and the patient is seen by infectious disease. Obtain a repeat chest x-ray. Also start the patient on probiotics the patient is on steroids. Assessment and Plan DVT prophylaxis: Patient on Coumadin and with therapeutic INR. Discharge Planning ID consult pending. Patient hypotensive will probably need medication adjustment. will need rehab placement upon DC. Problem Qualifiers (1) Hypotension: Qualified Code: I95.2 - Hypotension due to drugs (2) A-fib: Qualified Code: I48.2 - Chronic atrial fibrillation (3) UTI (urinary tract infection): Qualified Code: N30.00 - Acute cystitis without hematuria (4) Osteomyelitis: Qualified Code: M86.68 - Other chronic osteomyelitis, other site Humble Farooq MD Oct 01, 2016 12:38
[2016-10-01] MEDS ORDERED: VANCOMYCIN INJ 1,000 MG in SODIUM CHLOR 0.9% 250 ML INJ 250 ML IV ONE (12:45)
[2016-10-01] MEDS ORDERED: SODIUM CHLOR 0.9% 250 ML INJ 250 ML IV ONE (12:45)
--- NOTE | 2016-10-01 14:24 | RADRPT ---
EXAM DATE/TIME: 10/01/2016 12:35 [facility] COMPARISON: CHEST SINGLE AP, September 26, 2016, 8:43. INDICATIONS : Anemia MEDICAL HISTORY : Anemia SURGICAL HISTORY : CABG. ENCOUNTER: Initial ACUITY: 2 days PAIN SCORE: 0/10 LOCATION: Bilateral chest FINDINGS: The patient is status-post sternotomy. There is prosthetic aortic and mitral valves in place. The l ungs demonstrate diffuse increased interstitial markings. A focal consolidation is not seen. A sign ificant effusion is not seen. There is a PICC line in place from the left arm. Spurring is seen in the thoracic spine. There is degenerative change at the left glenohumeral joint. CONCLUSION: Diffuse increased interstitial markings likely representing edema. When compared to the prior exam t here has been some improvement. Senthil Corrales MD on October 01, 2016 at 14:11 Board Certified Radiologist. This report was verified electronically.
--- NOTE | 2016-10-01 17:21 | PD.ID.CON ---
History of Present Illness Service ID Consult Requested By Dr Valdez Reason for Consult UTI Primary Care Physician Unknown Diagnoses: History of Present Illness Pt is a very poor historian He told me he was admitted to [facility] because he needed blood transfusion. He is not aware of other medical issues. He is an 86 yo male with with a PMH of HTN, Osteomyelitis on IV Abx and A-fib on Coumadin who was sent to the ER secondary to outpatient lab work showing Hgb 6.3, no active bleeding was found He denies disuria, no fever, no chills, no leukocytosis He had UA done and the incidental finding was pyuria and VRE in 2/2 urine cultures. His first urine clx also had PSAE and 2nd specimen had Reba along with VRE He was started o levaquin and repeat urine clx showed no PSAE and just 1 CFU of Enterococcus He denies disuria, has no leukocytosis and was afebrile nearly the whole hospital cousrse except one occasion had temp 99.9 F Review of Systems ROS Limitations: Poor Historian Past Family Social History Allergies: Coded Allergies: Heparin (Verified Allergy, Unknown, 09/21/16) Iodine (Verified Allergy, Unknown, 09/21/16) *MDRO Multi-Drug Resistant Organism (Verified Adverse Reaction, Unknown, ) VRE (urine)-09/26/16 Past Medical History Osteomyelitis: R hip, on IV Cefazolin 2gm IV q8h via Left PICC-present at time of admission. S/P recent hip surgery Past Surgical History S/P recent R hip surgery Active Ordered Medications Medications where reviewed in EMR Antibiotics Include: cefazolin levaquin Family History Reviewed. Non contribtory Social History Negative for alcohol, tobacco or drugs. Patient resides at [facility] Physical Exam Vital Signs Vital Signs Date Time Temp Pulse Resp B/P Pulse Ox O2 Delivery O2 Flow Rate FiO2 10/01/16 15:01 92 10/01/16 15:01 98.4 90 18 102/62 98 10/01/16 15:01 93 Nasal Cannula 2.00 10/01/16 14:00 78 10/01/16 13:00 92 10/01/16 12:00 80 10/01/16 11:30 98.3 71 18 93/56 97 10/01/16 11:30 93 Nasal Cannula 2.00 10/01/16 11:09 75 10/01/16 10:29 2.00 10/01/16 10:00 84 10/01/16 09:00 88 10/01/16 08:15 98.2 78 18 88/60 93 10/01/16 08:15 93 Nasal Cannula 2.00 10/01/16 08:00 92 10/01/16 07:01 80 10/01/16 06:00 66 10/01/16 05:00 67 10/01/16 04:00 98 Nasal Cannula 2.00 10/01/16 04:00 97.9 51 18 97/51 97 10/01/16 04:00 77 10/01/16 03:00 71 10/01/16 02:00 86 10/01/16 01:00 87 10/01/16 00:00 98.1 95 18 122/70 98 10/01/16 00:00 98 Nasal Cannula 2.00 10/01/16 00:00 92 09/30/16 23:00 80 09/30/16 22:00 92 09/30/16 21:00 92 09/30/16 20:00 96 Nasal Cannula 2.00 09/30/16 20:00 99.2 98 18 107/63 96 09/30/16 20:00 99 09/30/16 19:00 96 09/30/16 18:00 105 Physical Exam CONSTITUTIONAL/GENERAL: This is an adequately nourished patient, in no apparent distress. TUBES/LINES/DRAINS: LUE pICC in place SKIN: No jaundice, rashes, or lesions. . Skin temperature appropriate. Not diaphoretic. HEAD: Atraumatic. Normocephalic. EYES: Pupils equal and round and reactive. Extraocular motions intact. No scleral icterus. No injection or drainage. Fundi not examined. ENT: Hearing grossly normal. Nose without bleeding or purulent drainage. Throat without visible erythema, exudates, masses, or lesions. NECK: Trachea midline. Supple, nontender. CARDIOVASCULAR: Regular rate and rhythm without murmurs, gallops, or rubs. No JVD. Peripheral pulses symmetric. RESPIRATORY/CHEST: Symmetric, unlabored respirations. Clear to auscultation. Breath sounds equal bilaterally. No wheezes, rales, or rhonchi. GASTROINTESTINAL: Abdomen soft, non-tender, nondistended. No hepato-splenomegaly , or palpable masses. No guarding. Bowel sounds present. GENITOURINARY: Without palpable bladder distension. MUSCULOSKELETAL: Extremities without clubbing, cyanosis, + soft pitting edema. No joint tenderness or effusion noted. No calf tenderness. No mottling or clubbing. LYMPHATICS: No palpable cervical or supraclavicular adenopathy. NEUROLOGICAL: Awake and alert. Motor and sensory grossly within normal limits. Follows commands. Cognitively sharp. Moves all extremities. PSYCHIATRIC: No obvious anxiety/depression. no apparent hallucinations or other psychotic thought process. Laboratory Initialkl clx ; URINE CULTURE Final 09/29/16-0902 >100,000 CFU/ML PSEUDOMONAS AERUGINOSA 50-75,000 CFU/ML ENTEROCOCCUS FAECIUM VRE Repeat clx <10,000 CFU/ML REBA ALBICANS (PRESUMPTIVE ID) 1 CFU GROUP D ENTEROCOCCUS(PRESUMPTIVE ID) ID AND LISA TO FOLLOW Laboratory Tests Test 09/30/16 10/01/16 10/01/16 18:16 05:10 06:45 Prothrombin Time 29.8 31.7 Prothromb Time International 2.6 2.7 Ratio Sodium Level 135 Potassium Level 3.6 Chloride Level 97 Carbon Dioxide Level 32.3 Anion Gap 6 Blood Urea Nitrogen 27 Creatinine 0.94 Estimat Glomerular Filtration 76 Rate Random Glucose 93 Calcium Level 8.2 White Blood Count 8.4 Red Blood Count 3.09 Hemoglobin 8.8 Hematocrit 26.7 Mean Corpuscular Volume 86.7 Mean Corpuscular Hemoglobin 28.4 Mean Corpuscular Hemoglobin 32.8 Concent Red Cell Distribution Width 17.3 Platelet Count 105 Mean Platelet Volume 7.7 Date/Time Procedure Status Source Growth 09/29/16 12:00 Urine Culture - Preliminary Resulted Urine Catheterized Urine Reba Albicans Group D Enterococcus Result Diagram: 10/01/16 0645 10/01/16 0510 Imaging Last Impressions Chest X-Ray 10/01/16 0000 Signed Impressions: Service Date/Time: Saturday, October 01, 2016 12:35 - CONCLUSION: Diffuse increased interstitial markings likely representing edema. When compared to the prior exam there has been some improvement. Senthil Corrales MD Assessment and Plan Assessment and Plan Probably asymptomatic bacteriuria vs low grade UTI - one of the specimens with excessive sq epis ? how the specimens were obtained Pt admitted for other clinical reason, pyuria/ bacteriria were incidental findings His bacteriuria resolved essentially on empiric levaquin (day# 6 today) He now has candiduria, which likely carries no clin significance R hip osteo, ?MSSA, on cefazoline for it complete 7 days of levaquin tomorrow Erika Johnson MD Oct 01, 2016 17:21
--- NOTE | 2016-10-01 17:22 | HHI.PR ---
Addendum to Inpatient Note Additional Information Pt seen interviewwd and examined fletcherun analia 5 pm Full note to follow Erika Johnson MD Oct 01, 2016 17:22
[2016-10-01] MEDS: WARFARIN SOD 5 MG TAB PO SCH (17:42)
[2016-10-01] MEDS: PRAVASTATIN SOD 40 MG TAB PO SCH (22:37)
[2016-10-01] MEDS: EZETIMIBE 10 MG TAB PO SCH (22:37)
[2016-10-01] MEDS: ACETAMINOPHEN/HYDROcodone 325 MG/10 MG TAB PO PRN (22:37)
[2016-10-02] VITALS (9 sets, daily range): BP systolic 79–135; BP diastolic 51–77; PULSE 54–117; RESP 18–20; TEMP 96.7–99.6; O2SAT 91–95
[2016-10-02] MEDS: ceFAZolin 2 GM PREMIX 50 ML IV SCH ×3 (04:18→20:28)
[2016-10-02] MEDS: DILTIAZEM HCL 30 MG TAB PO SCH ×4 (05:04→18:13)
[2016-10-02] MEDS: VALSARTAN 80 MG TAB PO SCH ×2 (09:00→10:10)
[2016-10-02] MEDS: DOCUSATE SODIUM 50 MG/SENNA 8.6 MG TAB PO SCH ×2 (10:09→20:33)
[2016-10-02] MEDS: ZINC SULFATE 220 MG CAP PO SCH (10:10)
[2016-10-02] MEDS: METOPROLOL TARTRATE 50 MG TAB PO SCH ×2 (10:10→20:33)
[2016-10-02] MEDS: LEVOFLOXACIN 500 MG TAB PO SCH (10:10)
[2016-10-02] MEDS: BETAMETHASONE/CLOTRIMAZOLE CREAM 15 GM TOPICAL SCH ×2 (10:11→20:35)
[2016-10-02] MEDS: SODIUM CHLORIDE 0.9% FLUSH 10 ML FLUSH IV FLUSH SCH ×2 (10:12→20:33)
--- NOTE | 2016-10-02 13:02 | HHI.PR ---
Subjective Remarks As per RN patient had episode of 10 beats of non sustained Vtach last night Patient denies cp/sob BP noted to drop into the systolic 80's as per RN BP dropped after patient got Metoprolol. Objective Vitals Vital Signs Date Time Temp Pulse Resp B/P Pulse Ox O2 Delivery O2 Flow Rate FiO2 10/02/16 12:27 97.0 117 20 87/59 92 10/02/16 08:18 97.1 104 20 113/77 91 10/02/16 05:04 100 107/60 10/02/16 04:00 96.7 100 20 79/51 95 10/02/16 00:11 99.6 54 18 114/56 95 10/01/16 23:37 18 10/01/16 20:09 98.0 85 20 96/54 95 10/01/16 20:00 Nasal Cannula 2.00 10/01/16 17:21 97.1 85 20 115/76 92 10/01/16 15:01 92 10/01/16 15:01 98.4 90 18 102/62 98 10/01/16 15:01 93 Nasal Cannula 2.00 10/01/16 14:00 78 I/O 10/01/16 10/01/16 10/01/16 10/02/16 10/02/16 10/02/16 07:00 15:00 23:00 07:00 15:00 23:00 Intake Total 580 ml 840 ml 50 ml Output Total 325 ml 275 ml 300 ml Balance 255 ml 565 ml -250 ml Intake Oral 480 ml 240 ml IV Total 100 ml 600 ml 50 ml Output Urine Total 325 ml 275 ml 300 ml # Voids 4 1 # Bowel Movements 0 0 Result Diagram: 10/01/16 0645 10/01/16 0510 Imaging Last Impressions Chest X-Ray 10/01/16 0000 Signed Impressions: Service Date/Time: Saturday, October 01, 2016 12:35 - CONCLUSION: Diffuse increased interstitial markings likely representing edema. When compared to the prior exam there has been some improvement. Senthil Corrales MD Objective Remarks GENERAL: Very thin patient. SKIN: Warm and dry. HEAD: Normocephalic. EYES: No scleral icterus. No injection or drainage. Pale conjunctiva. NECK: Supple, trachea midline. No JVD or lymphadenopathy. CARDIOVASCULAR: Irregularly irregular rhythm without murmur rubs or gallops. RESPIRATORY: rales in BL lower lung smith. GASTROINTESTINAL: Abdomen soft, non-tender, nondistended. EXTREMITIES: No cyanosis, or edema. NEUROLOGICAL: Awake, alert, and oriented x 3. Non-focal. Procedures None Medications and IVs Current Medications Medications (Trade) Dose Ordered Sig/Markell Route Start Time Stop Time Status Last Admin (NS Flush) 2 ml UNSCH PRN IV FLUSH 09/21/16 02:15 (NS Flush) 2 ml BID IV FLUSH 09/21/16 09:00 10/02/16 10:12 (Zofran Inj) 4 mg Q6H PRN IVP 09/21/16 02:15 09/21/16 17:15 (Tylenol) 650 mg Q6H PRN PO 09/21/16 02:15 ([place] 5-325 Mg) 1 tab Q4H PRN PO 09/21/16 02:15 09/24/16 00:57 ([place] 10-325 Mg) 1 tab Q4H PRN PO 09/21/16 02:15 10/01/16 22:37 (Rahda-Colace) 1 tab BID PO 09/21/16 09:00 10/02/16 10:09 (Milk Of Magnesia Liq) 30 ml Q12H PRN PO 09/21/16 02:15 09/25/16 09:53 (Senokot) 17.2 mg Q12H PRN PO 09/21/16 02:15 (Dulcolax Supp) 10 mg DAILY PRN RECTAL 09/21/16 02:15 09/29/16 08:31 (Lactulose Liq) 30 ml DAILY PRN PO 09/21/16 02:15 09/25/16 05:56 (Lotrisone Cream) 1 applic BID TOPICAL 09/21/16 09:00 10/02/16 10:11 (Zetia) 10 mg HS PO 09/21/16 21:00 10/01/16 22:37 (Pravachol) 40 mg HS PO 09/21/16 21:00 10/01/16 22:37 (Levaquin) 500 mg DAILY PO 09/26/16 19:00 10/02/16 10:10 (Lopressor) 50 mg BID PO 09/27/16 21:00 10/02/16 10:10 (Zinc Sulfate) 220 mg DAILY@1100 PO 09/28/16 11:00 10/02/16 10:10 (Cardizem) 30 mg Q6HR PO 09/30/16 13:15 10/01/16 17:42 (Diovan) 160 mg DAILY PO 10/01/16 09:00 Warfarin Sodium 5 mg 5 mg DAILY@16 PO 09/30/16 19:58 10/01/16 17:42 (Ancef 2 Gm Premix) 50 ml @ 100 mls/hr Q8H IV 10/01/16 13:00 10/02/16 04:18 (Lactinex) 1 tab Q12HR PO 10/02/16 12:15 Urinary Catheter: No Vascular Central Line Catheter: No Side: Left A/P Problem List: (1) Acute on chronic systolic heart failure ICD Code: I50.23 Status: Acute Plan: Echocardiogram as described above shows an EF of 20-25%. No previous echocardiogram to compare with. Follow-up cardiology recommendations. 10/02 Chest x-ray obtained on 10/01 show increased interstitial markings. I will start the patient on oral Lasix. (2) Hypotension ICD Code: I95.9 Status: Acute Plan: Bp down to the high 80's systolic. The dose of valsartan was decreased to 160 mg by mouth daily on 10/01. Patient was given a small bolus of 250 cc of IV normal saline. 10/02 blood pressure still dropping into the 80s systolic after the patient is giving his medications. I will decrease the dose of metoprolol to 25 mg by mouth twice a day and will also decrease the dose of valsartan to are milligrams by mouth daily. wrote for holding parameters (3) Normocytic normochromic anemia ICD Code: D64.9 Status: Acute Plan: History 6-year-old male who presented to [place] after he was sent because of normal lab values which showed hemoglobin of 6.3. Patient status post PRBC transfusion of 2 units in the emergency department with improvement of hemoglobin. No signs of active bleeding. Hemoccult negative. Hematology was consulted - likely anemia of chronic disease as seen in osteomyelitis. Initially anticoagulation was held due to severe anemia, hematology gave the okay for anticoagulation to be resumed. Hemoglobin stable. Continue to monitor H&H. Transfuse for hemoglobin less than 8. (4) A-fib ICD Code: I48.91 Status: Chronic Plan: Patient has history of aVR - bovine Rate controlled. Cardiology consulted. Patient currently on metoprolol 50 mg by mouth twice a day. Patient hypotensive , we'll continue us blood pressure allows. Decrease valsartan dose. 10/02 Patient still hypotensive after beta mary ellen given. I will decrease dose of metoprolol to 25 mg by mouth twice a day. Continue to monitor on telemetry. (5) UTI (urinary tract infection) ICD Code: N39.0 Status: Acute Plan: Patient has a UTI with urine cultures positive for enterococcus Faecium Vre and pseudomonas aeruginosa, on 09/26. Repeat catheterized urine culture grew Reba Albicans < 10,000 cfu and group D enterococcus. Patient is currently on oral levofloxacin, IV cefazolin. Continue IV cefazolin for osteomyelitis, continue oral Levaquin. 10/02 ID consulted, appreciate recommendations. UTI growing VRE however there is < 1000 cfu. UTI has been treated with 7 days of Levaquin with last dose being today. 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 Currently on IV cefazolin 2 g IV every 8 hours via left PICC. Status post recent hip surgery. Recommendations as per ID. (7) Demand ischemia ICD Code: I24.8 Status: Acute Plan: Patient had elevated troponins however no chest pains. Seen by cardiology. Thought to be secondary to demand ischemia. Echo cardiac showed the left ventricular systolic function severely reduced with an estimated ejection fraction the range of 20-25%. Trace mitral valve regurgitation, normally functioning mitral valve bioprosthesis. Normal aortic valve prosthesis. There is estimated moderate pulmonary hypertension with pulmonary pressure in the range of 50-60 mmHg. (8) Hypokalemia ICD Code: E87.6 Status: Resolved Plan: Potassium levels low on 09/27 at 3.2. Replaced orally and levels now normal. continue to monitor BMP. (9) Hospital acquired PNA ICD Code: J18.9 Status: Acute Plan: Suspected hospital-acquired pneumonia however this has been ruled out. Chest x-ray obtained yesterday on 10/01 shows changes more consistent with pulmonary edema and congestive heart failure. No need for further antibiotic therapy.. Assessment and Plan DVT prophylaxis: Patient on Coumadin and with therapeutic INR. Discharge Planning Patient still with episode of hypotension after medications. Medications have been adjusted. Patient will be able to discharge once BP stable. Problem Qualifiers (1) Hypotension: Qualified Code: I95.2 - Hypotension due to drugs (2) A-fib: Qualified Code: I48.2 - Chronic atrial fibrillation (3) UTI (urinary tract infection): Qualified Code: N30.00 - Acute cystitis without hematuria (4) Osteomyelitis: Qualified Code: M86.68 - Other chronic osteomyelitis, other site Humble Farooq MD Oct 02, 2016 13:02
[2016-10-02] MEDS ORDERED: POTASSIUM CHLORIDE 25 MEQ EFFERVESCENT TAB PO ONE (13:15)
[2016-10-02] MEDS: LACTOBACILLUS ACIDOPHILUS TAB PO SCH ×2 (13:55→20:33)
[2016-10-02 15:33] LABS: ALT (GPT) 10 U/L (12-78); ANION GAP 7 MEQ/L (5-15); AST (GOT) 58 U/L (15-37); BICARBONATE 29.6 MEQ/L (21.0-32.0); BLOOD UREA NITROGEN 23 MG/DL (7-18); CHLORIDE 99 MEQ/L (98-107); GLOMERULAR FILTRATION RATE 66 ML/MIN (>89); SODIUM (NA) 136 MEQ/L (136-145)
[2016-10-02 15:34] LABS: ALKALINE PHOSPHATASE 192 U/L (45-117); TOTAL BILIRUBIN ADULT 0.6 MG/DL (0.2-1.0)
[2016-10-02] MEDS: WARFARIN SOD 5 MG TAB PO SCH (16:57)
[2016-10-02] MEDS ORDERED: FUROSEMIDE 20 MG TAB PO SCH (17:45)
[2016-10-02] MEDS ORDERED: FUROSEMIDE 20 MG/2 ML VIAL IV PUSH SCH (18:00)
[2016-10-02] MEDS: FUROSEMIDE 20 MG/2 ML VIAL IV PUSH SCH (20:33)
[2016-10-02] MEDS: PRAVASTATIN SOD 40 MG TAB PO SCH (20:34)
[2016-10-02] MEDS: EZETIMIBE 10 MG TAB PO SCH (20:35)
[2016-10-03] VITALS (7 sets, daily range): BP systolic 95–122; BP diastolic 51–72; PULSE 89–120; RESP 18; TEMP 97.2–98.1; O2SAT 93–97
[2016-10-03] MEDS: ceFAZolin 2 GM PREMIX 50 ML IV SCH ×3 (05:07→20:44)
[2016-10-03] MEDS: DILTIAZEM HCL 30 MG TAB PO SCH ×2 (05:21)
[2016-10-03 06:18] LABS: AUTOMATED NEUTROPHIL # 5.2 TH/MM3 (1.8-7.7); BASOPHIL % 0.4 % (0.0-2.0); EOSINOPHIL # 0.4 TH/MM3 (0-0.4); EOSINOPHIL % 5.9 % (0.0-4.0); HEMATOCRIT 27.1 % (39.0-51.0); HEMO FLAGS DIFF FINAL; LYMPH % 11.2 % (9.0-44.0); LYMPHOCYTE # 0.8 TH/MM3 (1.0-4.8); MEAN CELL VOLUME 88.4 FL (80.0-100.0); MEAN CORPUSCULAR HEMOGLOBIN 29.4 PG (27.0-34.0); MEAN CORPUSCULAR HGB CONC 33.2 % (32.0-36.0); MONO % 8.8 % (0.0-8.0); NEUT % 73.7 % (16.0-70.0); PLATELET COUNT 161 TH/MM3 (150-450); RED BLOOD COUNT 3.07 MIL/MM3 (4.50-5.90); RED CELL DISTRIBUTION WIDTH 17.2 % (11.6-17.2); WHITE BLOOD COUNT 7.1 TH/MM3 (4.0-11.0)
[2016-10-03 06:38] LABS: ANION GAP 8 MEQ/L (5-15); AST (GOT) 49 U/L (15-37); BICARBONATE 29.6 MEQ/L (21.0-32.0); BLOOD UREA NITROGEN 21 MG/DL (7-18); CHLORIDE 98 MEQ/L (98-107); GLOMERULAR FILTRATION RATE 78 ML/MIN (>89); MAGNESIUM 1.9 MG/DL (1.5-2.5); POTASSIUM 3.7 MEQ/L (3.5-5.1); SODIUM (NA) 136 MEQ/L (136-145)
[2016-10-03 06:39] LABS: ALT (GPT) 9 U/L (12-78)
[2016-10-03 06:41] LABS: ALKALINE PHOSPHATASE 182 U/L (45-117); TOTAL BILIRUBIN ADULT 0.9 MG/DL (0.2-1.0)
[2016-10-03] MEDS: FUROSEMIDE 20 MG/2 ML VIAL IV PUSH SCH (08:53)
[2016-10-03] MEDS: METOPROLOL TARTRATE 50 MG TAB PO SCH (08:54)
[2016-10-03] MEDS: LEVOFLOXACIN 500 MG TAB PO SCH (08:54)
[2016-10-03] MEDS ORDERED: VALSARTAN 80 MG TAB PO SCH (09:00)
[2016-10-03] MEDS: SODIUM CHLORIDE 0.9% FLUSH 10 ML FLUSH IV FLUSH SCH ×2 (09:00→20:44)
[2016-10-03] MEDS: LACTOBACILLUS ACIDOPHILUS TAB PO SCH ×2 (09:06→20:41)
[2016-10-03] MEDS: DOCUSATE SODIUM 50 MG/SENNA 8.6 MG TAB PO SCH ×2 (09:06→20:41)
[2016-10-03] MEDS ORDERED: METOPROLOL TARTRATE 25 MG TAB PO ONE (10:00)
[2016-10-03] MEDS: ZINC SULFATE 220 MG CAP PO SCH (13:37)
[2016-10-03] MEDS: WARFARIN SOD 5 MG TAB PO SCH (17:39)
[2016-10-03] MEDS ORDERED: DIGOXIN 0.5 MG/2 ML VIAL IVS STA (19:26)
--- NOTE | 2016-10-03 19:32 | HHI.PR ---
Subjective Remarks Patient seen this morning around 10 AM. Says he is feeling all right. Denies any chest pain or shortness of breath. Pressures have continued low. Objective Vital Signs Date Time Temp Pulse Resp B/P Pulse Ox O2 Delivery O2 Flow Rate FiO2 10/03/16 16:00 98.0 104 18 98/67 93 10/03/16 12:00 97.2 89 18 95/51 97 10/03/16 08:00 98.1 120 18 111/72 93 10/03/16 04:00 97.4 108 18 122/58 96 10/03/16 03:09 Nasal Cannula 2.00 10/03/16 00:40 97.5 115 18 99/57 93 10/03/16 00:00 Nasal Cannula 2.00 10/02/16 21:19 98.5 101 18 135/75 91 10/02/16 20:00 Nasal Cannula 2.00 10/02/16 20:00 98 I/O 10/02/16 10/02/16 10/02/16 10/03/16 10/03/16 10/03/16 07:00 15:00 23:00 07:00 15:00 23:00 Intake Total 50 ml 360 ml 50 ml 220 ml Output Total 300 ml 100 ml 600 ml 300 ml Balance -250 ml 260 ml 50 ml -380 ml -300 ml Intake Oral 360 ml IV Total 50 ml 50 ml 220 ml Output Urine Total 300 ml 100 ml 600 ml 300 ml # Voids 1 3 2 # Bowel Movements 0 0 Result Diagram: 10/03/16 0545 10/03/16 0545 Objective Remarks GENERAL: Patient sitting up in chair. Appears comfortable. SKIN: Warm and dry. HEAD: Normocephalic. EYES: No scleral icterus. No injection or drainage. NECK: Supple, trachea midline. No JVD. CARDIOVASCULAR: Irregular rhythm, tachycardic with heart rate in the 100s. RESPIRATORY: Breath sounds equal bilaterally. No accessory muscle use. GASTROINTESTINAL: Abdomen soft, non-tender, nondistended. MUSCULOSKELETAL: No cyanosis, or edema. BACK: Nontender without obvious deformity. No CVA tenderness. A/P Assessment and Plan =====10/03/16==== //Hypotension. //Atrial fibrillation with RVR Heart rate continues elevated in RVR. Hypotensive. We will continue metoprolol 25 mg twice daily. Discontinue diltiazem. Digoxin load. Renal function is not ideal, however expect to improve if heart rate can be controlled. -Decrease ARB Hypokalemia. Replaced. //Acute on chronic systolic heart failure - Echocardiogram shows an EF of 20-25%. No previous echocardiogram to compare with. Follow-up cardiology recommendations. 10/02 Chest x-ray obtained on 10/01 show increased interstitial markings. -Continue beta mary ellen and diuretic. Patient will need to have repeat echocardiogram in 2 months after medical therapy. With cardiology as outpatient. //Hypotension Plan: Bp down to the high 80's systolic. The dose of valsartan was decreased to 160 mg by mouth daily on 10/01. Patient was given a small bolus of 250 cc of IV normal saline. 10/02 blood pressure still dropping into the 80s systolic after the patient is giving his medications. I will decrease the dose of metoprolol to 25 mg by mouth twice a day and will also decrease the dose of valsartan to are milligrams by mouth daily. wrote for holding parameters 10/03Heart rate continues elevated in RVR. Hypotensive. We will continue metoprolol 25 mg twice daily. Discontinue diltiazem. Digoxin load. Renal function is not ideal, however expect to improve if heart rate can be controlled. -Decrease ARB //Normocytic normochromic anemia 86-year-old male who presented to [place] after he was sent because of normal lab values which showed hemoglobin of 6.3. Patient status post PRBC transfusion of 2 units in the emergency department with improvement of hemoglobin. No signs of active bleeding. Hemoccult negative. Hematology was consulted - likely anemia of chronic disease as seen in osteomyelitis. Initially anticoagulation was held due to severe anemia, hematology gave the okay for anticoagulation to be resumed. Hemoglobin continues stable. Continue to monitor H&H. Transfuse for hemoglobin less than 8. // A-fib - Patient has history of aVR - bovine valve Rate controlled. Cardiology consulted. Patient currently on metoprolol 25 mg by mouth twice a day. Patient hypotensive , we'll continue us blood pressure allows. Decrease valsartan dose. 10/02 Patient still hypotensive after beta mary ellen given. I will decrease dose of metoprolol to 25 mg by mouth twice a day. Continue to monitor on telemetry. 10/03Heart rate continues elevated in RVR. Hypotensive. We will continue metoprolol 25 mg twice daily. Discontinue diltiazem. Digoxin load. Renal function is not ideal, however expect to improve if heart rate can be controlled. -Decrease ARB //UTI (urinary tract infection) -Patient has a UTI with urine cultures positive for enterococcus Faecium Vre and pseudomonas aeruginosa, on 09/26. Repeat catheterized urine culture grew Reba Albicans < 10,000 cfu and group D enterococcus. Patient is currently on oral levofloxacin, IV cefazolin. Continue IV cefazolin for osteomyelitis, continue oral Levaquin. 10/02 ID consulted, appreciate recommendations. UTI growing VRE however there is < 1000 cfu. UTI has been treated with 7 days of Levaquin with last dose being today. 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 -continue on IV cefazolin 2 g IV every 8 hours via left PICC. Status post recent hip surgery. Recommendations as per ID. //Demand ischemia -Patient had elevated troponins however no chest pains. Seen by cardiology. Thought to be secondary to demand ischemia. Echo cardiac showed the left ventricular systolic function severely reduced with an estimated ejection fraction the range of 20-25%. Trace mitral valve regurgitation, normally functioning mitral valve bioprosthesis. Normal aortic valve prosthesis. There is estimated moderate pulmonary hypertension with pulmonary pressure in the range of 50-60 mmHg. -Appreciate cardiology assistance. // Hypokalemia Resolved after replacement. Continue to monitor and replace as necessary. //DVT prophylaxis: Patient on Coumadin and with therapeutic INR. Discharge Planning Continue to adjust medications for hypotension control heart rate without affecting blood pressure.. Dawood Reveles MD Oct 03, 2016 19:32 //DVT prophylaxis: Patient on Coumadin and with therapeutic INR. Discharge Planning Continue to adjust medications for hypotension control heart rate without affecting blood pressure.. Dawood Reveles MD Oct 03, 2016 19:32
[2016-10-03] MEDS ORDERED: POTASSIUM CHLORIDE 10 MEQ CONTROLLED RELEASE TAB PO ONE (20:00)
[2016-10-03] MEDS: BETAMETHASONE/CLOTRIMAZOLE CREAM 15 GM TOPICAL SCH (20:43)
[2016-10-03] MEDS: EZETIMIBE 10 MG TAB PO SCH (20:45)
[2016-10-03] MEDS: PRAVASTATIN SOD 40 MG TAB PO SCH (20:49)
[2016-10-03] MEDS: METOPROLOL TARTRATE 25 MG TAB PO SCH (21:00)
[2016-10-03] MEDS ORDERED: METOPROLOL TARTRATE 50 MG TAB PO SCH (21:00)
[2016-10-04] VITALS: BP 129/60; PULSE 93; RESP 20; TEMP 97.6; O2SAT 97
[2016-10-04] MEDS: DIGOXIN 0.5 MG/2 ML VIAL IVS SCH ×2 (02:00→06:44)
[2016-10-04 04:00] VITALS: BP 132/60; PULSE 75; RESP 20; TEMP 97.8; O2SAT 100
[2016-10-04] MEDS: ceFAZolin 2 GM PREMIX 50 ML IV SCH ×2 (06:09→11:42)
[2016-10-04 06:25] LABS: AUTOMATED NEUTROPHIL # 5.6 TH/MM3 (1.8-7.7); BASOPHIL % 0.5 % (0.0-2.0); EOSINOPHIL # 0.5 TH/MM3 (0-0.4); EOSINOPHIL % 6.7 % (0.0-4.0); HEMATOCRIT 27.9 % (39.0-51.0); HEMO FLAGS DIFF FINAL; LYMPH % 10.4 % (9.0-44.0); LYMPHOCYTE # 0.8 TH/MM3 (1.0-4.8); MEAN CELL VOLUME 86.5 FL (80.0-100.0); MEAN CORPUSCULAR HEMOGLOBIN 28.8 PG (27.0-34.0); MEAN CORPUSCULAR HGB CONC 33.3 % (32.0-36.0); MONO % 8.9 % (0.0-8.0); NEUT % 73.5 % (16.0-70.0); PLATELET COUNT 170 TH/MM3 (150-450); RED BLOOD COUNT 3.23 MIL/MM3 (4.50-5.90); RED CELL DISTRIBUTION WIDTH 17.3 % (11.6-17.2); WHITE BLOOD COUNT 7.7 TH/MM3 (4.0-11.0)
[2016-10-04] MEDS: MAGNESIUM HYDROXIDE SUSP 30 ML CUP PO PRN (06:42)
[2016-10-04 06:47] LABS: BICARBONATE 32.7 MEQ/L (21.0-32.0)
[2016-10-04 08:12] VITALS: BP 147/67; PULSE 76; RESP 18; TEMP 97; O2SAT 98
[2016-10-04] MEDS: SODIUM CHLORIDE 0.9% FLUSH 10 ML FLUSH IV FLUSH SCH (08:33)
[2016-10-04] MEDS: FUROSEMIDE 20 MG/2 ML VIAL IV PUSH SCH (08:34)
[2016-10-04] MEDS: LACTOBACILLUS ACIDOPHILUS TAB PO SCH (08:35)
[2016-10-04] MEDS: DOCUSATE SODIUM 50 MG/SENNA 8.6 MG TAB PO SCH (08:36)
[2016-10-04] MEDS: BETAMETHASONE/CLOTRIMAZOLE CREAM 15 GM TOPICAL SCH (08:36)
[2016-10-04] MEDS: METOPROLOL TARTRATE 25 MG TAB PO SCH (08:36)
[2016-10-04] MEDS ORDERED: VALSARTAN 40 MG TAB PO SCH (09:00)
[2016-10-04] MEDS ORDERED: DIGOXIN 0.125 MG TAB PO SCH (09:00)
[2016-10-04] MEDS ORDERED: DIOV40TA PO ×2 (10:26→11:16)
[2016-10-04] MEDS ORDERED: FURO40TA PO (10:26)
[2016-10-04] MEDS ORDERED: PRAV40TA PO (10:26)
[2016-10-04] MEDS ORDERED: DIGO0.12 PO (10:26)
[2016-10-04] MEDS ORDERED: METO25TA3 PO (10:26)
[2016-10-04] MEDS ORDERED: LEVO500T8 PO (10:30)
[2016-10-04] MEDS: ZINC SULFATE 220 MG CAP PO SCH (11:42)
[2016-10-04 12:16] VITALS: BP 112/59; PULSE 79; RESP 18; TEMP 96; O2SAT 98
[2016-10-04 14:13] LABS: INTERNATIONAL NORMALIZED RATIO 5.6 RATIO
[2016-10-04] MEDS ORDERED: WARF4TAB52 PO (14:27)
--- NOTE | 2016-10-04 14:46 | HHI.PR ---
Subjective Remarks Patient seen this morning prior to discharge. Says he is feeling well. Denies any chest pain or shortness of breath. Objective Vital Signs Date Time Temp Pulse Resp B/P Pulse Ox O2 Delivery O2 Flow Rate FiO2 10/04/16 12:16 96.0 79 18 112/59 98 10/04/16 08:30 Nasal Cannula 2.50 10/04/16 08:12 97.0 76 18 147/67 98 10/04/16 04:00 97.8 75 20 132/60 100 10/04/16 00:00 97.6 93 20 129/60 97 10/03/16 23:00 Nasal Cannula 2.00 10/03/16 21:00 103 10/03/16 20:00 97.5 110 18 95/58 96 10/03/16 16:00 98.0 104 18 98/67 93 I/O 10/03/16 10/03/16 10/03/16 10/04/16 10/04/16 10/04/16 07:00 15:00 23:00 07:00 15:00 23:00 Intake Total 220 ml 116 ml Output Total 600 ml 300 ml 300 ml 100 ml Balance -380 ml -300 ml -300 ml 116 ml -100 ml Intake Oral 16 ml IV Total 220 ml 100 ml Output Urine Total 600 ml 300 ml 300 ml 100 ml # Voids 3 2 4 # Bowel Movements 0 1 Result Diagram: 10/04/1652910/04/16 0530 Objective Remarks GENERAL: Patient sitting up in chair. Appears comfortable. Smiling today. SKIN: Warm and dry. HEAD: Normocephalic. EYES: No scleral icterus. No injection or drainage. NECK: Supple, trachea midline. No JVD. CARDIOVASCULAR: Irregular rhythm, tachycardic with heart rate in the 100s. RESPIRATORY: Breath sounds equal bilaterally. No accessory muscle use. GASTROINTESTINAL: Abdomen soft, non-tender, nondistended. MUSCULOSKELETAL: No cyanosis, or edema. BACK: Nontender without obvious deformity. No CVA tenderness. A/P Assessment and Plan =====10/04/16==== //Hypotension. //Atrial fibrillation with RVR -Both heart rate and blood pressure Appears to have improved on digoxin, lower dose of ARB.. Patient will need digoxin level performed within 1 week. //Subtherapeutic INR. 5.6. Discussed with nurse, pharmacist. No signs of bleeding. We'll hold warfarin at discharge, advised to restart when INR is therapeutic.. //Acute on chronic systolic heart failure - Echocardiogram shows an EF of 20-25%. No previous echocardiogram to compare with. Follow-up cardiology recommendations. 10/02 Chest x-ray obtained on 10/01 show increased interstitial markings. -Continue beta mary ellen and diuretic. Patient will need to have repeat echocardiogram in 2 months after medical therapy. With cardiology as outpatient. //Hypotension Plan: Bp down to the high 80's systolic. The dose of valsartan was decreased to 160 mg by mouth daily on 10/01. Patient was given a small bolus of 250 cc of IV normal saline. 10/02 blood pressure still dropping into the 80s systolic after the patient is giving his medications. I will decrease the dose of metoprolol to 25 mg by mouth twice a day and will also decrease the dose of valsartan to are milligrams by mouth daily. wrote for holding parameters 10/03Heart rate continues elevated in RVR. Hypotensive. We will continue metoprolol 25 mg twice daily. Discontinue diltiazem. Digoxin load. Renal function is not ideal, however expect to improve if heart rate can be controlled. -Decrease ARB //Normocytic normochromic anemia 86-year-old male who presented to [place] after he was sent because of normal lab values which showed hemoglobin of 6.3. Patient status post PRBC transfusion of 2 units in the emergency department with improvement of hemoglobin. No signs of active bleeding. Hemoccult negative. Hematology was consulted - likely anemia of chronic disease as seen in osteomyelitis. Initially anticoagulation was held due to severe anemia, hematology gave the okay for anticoagulation to be resumed. Hemoglobin continues stable. Continue to monitor H&H. Transfuse for hemoglobin less than 8. // A-fib - Patient has history of aVR - bovine valve Rate controlled. Cardiology consulted. Patient currently on metoprolol 25 mg by mouth twice a day. Patient hypotensive , we'll continue us blood pressure allows. Decrease valsartan dose. 10/02 Patient still hypotensive after beta mary ellen given. I will decrease dose of metoprolol to 25 mg by mouth twice a day. Continue to monitor on telemetry. 10/03Heart rate continues elevated in RVR. Hypotensive. We will continue metoprolol 25 mg twice daily. Discontinue diltiazem. Digoxin load. Renal function is not ideal, however expect to improve if heart rate can be controlled. -Decrease ARB //UTI (urinary tract infection) -Patient has a UTI with urine cultures positive for enterococcus Faecium Vre and pseudomonas aeruginosa, on 09/26. Repeat catheterized urine culture grew Reba Albicans < 10,000 cfu and group D enterococcus. Patient is currently on oral levofloxacin, IV cefazolin. Continue IV cefazolin for osteomyelitis, continue oral Levaquin. 10/02 ID consulted, appreciate recommendations. UTI growing VRE however there is < 1000 cfu. UTI has been treated with 7 days of Levaquin. 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 -continue on IV cefazolin 2 g IV every 8 hours via left PICC. Status post recent hip surgery. Recommendations as per ID. all up with ID as outpatient. //Demand ischemia -Patient had elevated troponins however no chest pains. Seen by cardiology. Thought to be secondary to demand ischemia. Echo cardiac showed the left ventricular systolic function severely reduced with an estimated ejection fraction the range of 20-25%. Trace mitral valve regurgitation, normally functioning mitral valve bioprosthesis. Normal aortic valve prosthesis. There is estimated moderate pulmonary hypertension with pulmonary pressure in the range of 50-60 mmHg. -Appreciate cardiology assistance. // Hypokalemia Resolved after replacement. Continue to monitor and replace as necessary. //DVT prophylaxis: Patient on Coumadin and with therapeutic INR. Discharge Planning Discharge to SNF. -INR is supratherapeutic we'll need to hold warfarin until INR therapeutic. -Patient will need a follow-up with cardiology. -We'll need to follow-up with infectious disease to advise on ongoing treatment for osteomyelitis. Continues on cefazolin IV for now. Dawood Reveles MD Oct 04, 2016 14:46
--- NOTE | 2016-10-04 14:46 | HHI.DS ---
Discharge Summary Admission Date Sep 21, 2016 at 02:57 Discharge Date: Oct 04, 2016 Admitting Diagnosis Symptomatic anemia (1) Acute on chronic systolic heart failure ICD Code: I50.23 (2) Hypotension ICD Code: I95.9 (3) Normocytic normochromic anemia ICD Code: D64.9 (4) A-fib ICD Code: I48.91 (5) UTI (urinary tract infection) ICD Code: N39.0 (6) Osteomyelitis ICD Code: M86.9 (7) Demand ischemia ICD Code: I24.8 (8) Hypokalemia ICD Code: E87.6 (9) Hospital acquired PNA ICD Code: J18.9 Procedures None Brief History - From Admission This is an 86-year-old male with a PMH of HTN, Osteomyelitis on IV Abx and A- fib on Coumadin who was sent to the ER secondary to outpatient lab work showing Hgb 6.3. Currently Hgb 6.5. Pt denies active bleeding at this time. On arrival, BP 108/55, HR 76, O2 sat 93% on 2L NC, Afebrile. WBC normal. Hgb 6.3 , Hct 19.1, no previous labs for comparison. Chemistry unremarkable except for dehydration, BUN 31, GFR 56. Troponin 0.13. INR 3.3. UA positive for UTI. 2u pRBC ordered in ER for transfusion. Pt w/ no complaints of chest pain or SOB. CBC/BMP: 10/04/16 0530 10/04/16 0530 Significant Findings Laboratory Tests Test 10/02/16 10/03/16 10/04/16 10/04/16 14:31 05:45 05:30 13:53 Blood Urea Nitrogen 23 MG/DL (7-18) 21 MG/DL (7-18) 19 MG/DL (7-18) Estimat Glomerular Filtration 66 ML/MIN (>89) 78 ML/MIN (>89) 81 ML/MIN (>89) Rate Random Glucose 132 MG/DL (74-106) Calcium Level 7.9 MG/DL 7.8 MG/DL 8.2 MG/DL (8.5-10.1) (8.5-10.1) (8.5-10.1) Aspartate Amino Transf 58 U/L (15-37) 49 U/L (15-37) (AST/SGOT) Alanine Aminotransferase 10 U/L (12-78) 9 U/L (12-78) (ALT/SGPT) Alkaline Phosphatase 192 U/L 182 U/L (45-117) (45-117) Albumin 2.1 GM/DL 2.2 GM/DL 2.2 GM/DL (3.4-5.0) (3.4-5.0) (3.4-5.0) Red Blood Count 3.07 MIL/MM3 3.23 MIL/MM3 (4.50-5.90) (4.50-5.90) Hemoglobin 9.0 GM/DL 9.3 GM/DL (13.0-17.0) (13.0-17.0) Hematocrit 27.1 % 27.9 % (39.0-51.0) (39.0-51.0) Neutrophils (%) (Auto) 73.7 % 73.5 % (16.0-70.0) (16.0-70.0) Monocytes (%) (Auto) 8.8 % (0.0-8.0) 8.9 % (0.0-8.0) Eosinophils (%) (Auto) 5.9 % (0.0-4.0) 6.7 % (0.0-4.0) Lymphocytes # (Auto) 0.8 TH/MM3 0.8 TH/MM3 (1.0-4.8) (1.0-4.8) Red Cell Distribution Width 17.3 % (11.6-17.2) Eosinophils # (Auto) 0.5 TH/MM3 (0-0.4) Carbon Dioxide Level 32.7 MEQ/L (21.0-32.0) Anion Gap 4 MEQ/L (5-15) Phosphorus Level 2.3 MG/DL (2.5-4.9) Prothrombin Time 67.0 SEC (9.8-11.6) Imaging Last Impressions Chest X-Ray 10/01/16 0000 Signed Impressions: Service Date/Time: Saturday, October 01, 2016 12:35 - CONCLUSION: Diffuse increased interstitial markings likely representing edema. When compared to the prior exam there has been some improvement. Senthil Corrales MD PE at Discharge GENERAL: Very thin patient. SKIN: Warm and dry. HEAD: Normocephalic. EYES: No scleral icterus. No injection or drainage. Pale conjunctiva. NECK: Supple, trachea midline. No JVD or lymphadenopathy. CARDIOVASCULAR: Irregularly irregular rhythm without murmur rubs or gallops. RESPIRATORY: rales in BL lower lung smith. GASTROINTESTINAL: Abdomen soft, non-tender, nondistended. EXTREMITIES: No cyanosis, or edema. NEUROLOGICAL: Awake, alert, and oriented x 3. Non-focal. Hospital Course Patient was treated for fluid overload with diuresis. Echocardiogram performed showed ejection fraction of 20-25%. Blood pressure and heart rate was difficult to control due to hypertension, and digoxin was added with good control. Patient will need repeat digoxin level in one week. Patient will continue on warfarin for atrial fibrillation. We'll need to repeat INR level in one week as INR 5.6 on day of discharge. Patient will need repeat echocardiogram in 2 months after adequate medical treatment. Follow with cardiology as outpatient. =====10/04/16==== //Hypotension. //Atrial fibrillation with RVR -Both heart rate and blood pressure Appears to have improved on digoxin, lower dose of ARB.. Patient will need digoxin level performed within 1 week. //Subtherapeutic INR. 5.6. Discussed with nurse, pharmacist. No signs of bleeding. We'll hold warfarin at discharge, advised to restart when INR is therapeutic.. //Acute on chronic systolic heart failure - Echocardiogram shows an EF of 20-25%. No previous echocardiogram to compare with. Follow-up cardiology recommendations. 10/02 Chest x-ray obtained on 10/01 show increased interstitial markings. -Continue beta mary ellen and diuretic. Patient will need to have repeat echocardiogram in 2 months after medical therapy. With cardiology as outpatient. //Hypotension Plan: Bp down to the high 80's systolic. The dose of valsartan was decreased to 160 mg by mouth daily on 10/01. Patient was given a small bolus of 250 cc of IV normal saline. 10/02 blood pressure still dropping into the 80s systolic after the patient is giving his medications. I will decrease the dose of metoprolol to 25 mg by mouth twice a day and will also decrease the dose of valsartan to are milligrams by mouth daily. wrote for holding parameters 10/03Heart rate continues elevated in RVR. Hypotensive. We will continue metoprolol 25 mg twice daily. Discontinue diltiazem. Digoxin load. Renal function is not ideal, however expect to improve if heart rate can be controlled. -Decrease ARB //Normocytic normochromic anemia 86-year-old male who presented to [facility] after he was sent because of normal lab values which showed hemoglobin of 6.3. Patient status post PRBC transfusion of 2 units in the emergency department with improvement of hemoglobin. No signs of active bleeding. Hemoccult negative. Hematology was consulted - likely anemia of chronic disease as seen in osteomyelitis. Initially anticoagulation was held due to severe anemia, hematology gave the okay for anticoagulation to be resumed. Hemoglobin continues stable. Continue to monitor H&H. Transfuse for hemoglobin less than 8. // A-fib - Patient has history of aVR - bovine valve Rate controlled. Cardiology consulted. Patient currently on metoprolol 25 mg by mouth twice a day. Patient hypotensive , we'll continue us blood pressure allows. Decrease valsartan dose. 10/02 Patient still hypotensive after beta mary ellen given. I will decrease dose of metoprolol to 25 mg by mouth twice a day. Continue to monitor on telemetry. 10/03Heart rate continues elevated in RVR. Hypotensive. We will continue metoprolol 25 mg twice daily. Discontinue diltiazem. Digoxin load. Renal function is not ideal, however expect to improve if heart rate can be controlled. -Decrease ARB //UTI (urinary tract infection) -Patient has a UTI with urine cultures positive for enterococcus Faecium Vre and pseudomonas aeruginosa, on 09/26. Repeat catheterized urine culture grew Reba Albicans < 10,000 cfu and group D enterococcus. Patient is currently on oral levofloxacin, IV cefazolin. Continue IV cefazolin for osteomyelitis, continue oral Levaquin. 10/02 ID consulted, appreciate recommendations. UTI growing VRE however there is < 1000 cfu. UTI has been treated with 7 days of Levaquin. 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 -continue on IV cefazolin 2 g IV every 8 hours via left PICC. Status post recent hip surgery. Recommendations as per ID. all up with ID as outpatient. //Demand ischemia -Patient had elevated troponins however no chest pains. Seen by cardiology. Thought to be secondary to demand ischemia. Echo cardiac showed the left ventricular systolic function severely reduced with an estimated ejection fraction the range of 20-25%. Trace mitral valve regurgitation, normally functioning mitral valve bioprosthesis. Normal aortic valve prosthesis. There is estimated moderate pulmonary hypertension with pulmonary pressure in the range of 50-60 mmHg. -Appreciate cardiology assistance. // Hypokalemia Resolved after replacement. Continue to monitor and replace as necessary. //DVT prophylaxis: Patient on Coumadin and with therapeutic INR. Discharge Planning Discharge to SNF. -INR is supratherapeutic we'll need to hold warfarin until INR therapeutic. -Patient will need a follow-up with cardiology. -We'll need to follow-up with infectious disease to advise on ongoing treatment for osteomyelitis. Continues on cefazolin IV for now. Pt Condition on Discharge: Good Discharge Disposition: Discharge to SNF Discharge Time: > 30 minutes Discharge Instructions DIET: Follow Instructions for: As Tolerated, No Restrictions Activities you can perform: Regular-No Restrictions Follow up Referrals: Appointment for Follow Up Cardiology - 1 Week Infectious Disease - 1 Week PCP Follow-up New Orders: DIGOXIN - 1 Week PT/INR - Next Day New Medications: Furosemide (Furosemide) 40 Mg Tab 40 MG PO DAILY heart #30 Ref 0 TAB Warfarin (Warfarin) 1 Mg Tab 1 MG PO DAILY Blood Clot Prevention #30 Ref 0 TAB Digoxin (Digoxin) 0.125 Mg Tab 0.125 MG PO DAILY heart Days 30 TAB Metoprolol Tartrate (Metoprolol Tartrate) 25 Mg Tab 25 MG PO BID heart Days 30 TAB Pravastatin (Pravachol) 40 Mg Tab 40 MG PO HS heart Days 30 TAB Valsartan (Diovan) 40 Mg Tab 40 MG PO DAILY heart Days 30 TAB Continued Medications: Betamethasone-Clotrimazole Topical (Lotrisone Topical) 1-0.05% Cream 1 APPLIC TOPICAL BID Fungal infection #15 Ref 0 GM Bisacodyl Supp (Dulcolax Supp) 10 Mg Supp 10 MG RECTAL DAILY PRN CONSTIPATION #12 Ref 0 SUPP Cefazolin in D5w (Cefazolin/Dextrose 2 gm/100Ml) 1 Inj Inj 2 GM IV Q8HR Ezetimibe-Simvastatin (Vytorin) 10-20 Mg Tab 1 TAB PO HS #30 Ref 0 TAB Magnesium Citrate Liq (Citroma Liq) 300 Ml Liq 296 ML PO DIRECTED PRN CONSTIPATION #1 Ref 0 BOTTLE Magnesium Hydroxide Liq (Milk of Magnesia Liq) 400 Mg/5 Ml Susp 30 ML PO Q6H PRN CONSTIPATION #1 Ref 0 BOTTLE Sodium Phosphates (Enema 7-19 gm/118Ml) 1 Martha Martha Zinc Sulfate (Zinc Sulfate) 220 Mg Cap 220 MG PO DAILY Nutritional Supplement Ref 0 CAP Discontinued Medications: Metoprolol Tartrate (Metoprolol Tartrate) 50 Mg Tab 50 MG PO DAILY #30 Ref 0 TAB Valsartan (Valsartan) 320 Mg Tab 320 MG PO DAILY #30 Ref 0 TAB Dawood Reveles MD Oct 04, 2016 14:46
== END 2016-10-04 14:44 | DRG 539 ==
LOC: NEPE 00:10 → NEDA 02:01 → OBSVTOIN 02:57 → HCIN 04:35 → HCIS 09-25 11:45 → N05B 10-01 16:37
PROVIDERS: ADMIT Internal Medicine; ATTEND Internal Medicine
PROC: 30233N1 Transfusion of Nonautologous Red Blood Cells into Peripheral Vein, Percutaneous Approach (ICD-10-PCS; principal; 2016-09-21)
DX: M86.68 Other chronic osteomyelitis, other site (principal); I50.23 Acute on chronic systolic (congestive) heart failure; I47.2 Ventricular tachycardia; I95.9 Hypotension, unspecified; I24.8 Other forms of acute ischemic heart disease; I27.2 Other secondary pulmonary hypertension; I48.0 Paroxysmal atrial fibrillation; I11.0 Hypertensive heart disease with heart failure; B37.49 Other urogenital candidiasis; D63.8 Anemia in other chronic diseases classified elsewhere; B96.5 Pseudomonas (aeruginosa) (mallei) (pseudomallei) as the cause of diseases classified elsewhere; E78.00 Pure hypercholesterolemia, unspecified; E86.0 Dehydration; Z95.2 Presence of prosthetic heart valve; Z96.641 Presence of right artificial hip joint; Z79.01 Long term (current) use of anticoagulants; E87.6 Hypokalemia
CPT/HCPCS: 36430; 71010; 80048; 80053; 80069; 81001; 82550; 82607; 82728; 82746; 83010; 83540; 83550; 83735; 83880; 84100; 84155; 84484; 85014; 85018; 85025; 85027; 85610; 85652; 85730; 86077; 86140; 86850; 86870; 86880; 86900; 86901; 86920; 86922; 87077; 87086; 87186; 93005; 93306; 94664; J0690; J1160; J1940; J2405; J3370; J7050; J7644; P9016